=== PATIENT | female | born 1935 | race Caucasian/White ===

== ENCOUNTER 2018-02-15 22:10 | Inpatient (IN) | payer OTHER ==
[~2018-02-15] VITALS: Ht 167.6 cm; Wt 58.1 kg
[2018-02-15] MEDS ORDERED: LEVOTHYROXINE100 MC1 PO (22:49)
[2018-02-15] MEDS ORDERED: CITALOPRAM HBR20 MG PO (22:50)
[2018-02-15] MEDS ORDERED: EXELON1 EAC1 TOP (22:51)
[2018-02-15] MEDS ORDERED: MELATONIN3 M4 PO (22:52)
[2018-02-15] MEDS ORDERED: BISACODYL10 M1 RC (22:53)
[2018-02-15] MEDS ORDERED: MILK OF MA400 MG/52 PO (22:53)
[2018-02-15] MEDS ORDERED: FLEET ENEMA133 ML RC (22:53)
[2018-02-15] MEDS ORDERED: ACETAMINOPHEN325 M2 PO (22:54)
[2018-02-15] MEDS ORDERED: ACEPHEN650 M1 PR (22:55)
--- NOTE | 2018-02-15 22:55 | ED MVC/FALL/TRAUMA COMPLAINT ---
History of Present Illness General Chief Complaint: Fall Stated Complaint: FALL Source: patient, old records, EMS, [facility] Exam Limitations: no limitations Vital Signs & Intake/Output Vital Signs & Intake/Output Vital Signs Date Time Temp Pulse Resp B/P B/P Pulse O2 O2 Flow FiO2 Mean Ox Delivery Rate 02/15 2213 98.7 61 18 180/81 95 Room Air ED Intake and Output 02/16 0000 02/15 1200 Intake Total 0 Output Total Balance 0 Intake, Oral 0 Patient 130 lb Weight Weight Estimated Measurement Method Allergies Coded Allergies: donepezil (PER 02/15/18) Reconcile Medications Acetaminophen 325 MG TABLET 2 TAB PO Q4H PRN PAIN/TEMP>100 (Reported) Acetaminophen (Acephen) 650 MG SUPP.RECT [address] Q4H PRN PAIN/TEMP>100 ( Reported) Bisacodyl 10 MG SUPP.RECT 1 SUP RC PRN CONSTIPATION (Reported) Citalopram Hydrobromide (Citalopram HBr) 20 MG TABLET 1 TAB PO DAILY MENTAL HEALTH (Reported) Levothyroxine Sodium 100 MCG TABLET 1 TAB PO DAILY THYROID (Reported) Magnesium Hydroxide (Milk Of Magnesia) 400 MG/5 ML ORAL.SUSP 30 ML PO DAILY PRN CONSTIPATION (Reported) Melatonin 3 MG TABLET 1 TAB PO QHS SUPPLEMENT (Reported) Na Phos,M-B/Na Phos,Di-Ba (Fleet Enema) 19 GRAM-7 GRAM/118 ML ENEMA 1 E RC DAILY PRN CONSTIPATION (Reported) Rivastigmine (Exelon) 9.5 MG/Patch PAT 1 PAT TOP DAILY ALZHEIMERS (Reported) Triage Note: SEE NURSES NOTES Triage Nurses Notes Reviewed? yes Onset: Abrupt Duration: hour(s): (1), constant, continues in ED Timing: single episode today Severity: moderate, severe Injuries/Fall Location: lower extremity Method of Injury: fall Loss of Consciousness: no loss of consciousness No Modifying Factors: none Modifying Factors: Worsens With: movement, palpation. LMP (ages 10-50): post menopausal : No Patient currently breastfeeds: No HPI: 82-year-old female history of dementia hypothyroidism and osteoporosis osteoarthritis anxiety depression brought in by an officer evaluation after a possible fall. Patient was found on the ground at the long-term just prior to arrival. It is unclear how she got there. She is complaining of pain to her right hip. She does not remember the fall. She denies chest pain shortness of breath headache or neck pain. No back abdominal pain. She is not on blood thinners. According to EMS she is at her baseline as far as her mental status. (Bartolo Pichardo) Past History Travel History Traveled to [place] past 21 day No Medical History Any Pertinent Medical History? see below for history Endocrine: HYPOTHYROID Surgical History Surgical History: non-contributory Psychosocial History What is your primary language Hebrew Tobacco Use: Cognitive Impairment ETOH Use: 6 Illicit Drug Use: UTD Family History Hx Contributory? No (Bartolo Pichardo) Review of Systems Review of Systems Constitutional: Reports: no symptoms. Eyes: Reports: no symptoms. Ears, Nose, Throat, Mouth: Reports: no symptoms. Respiratory: Reports: no symptoms. Cardiovascular: Reports: no symptoms. Gastrointestinal/Abdominal: Reports: no symptoms. Genitourinary: Reports: no symptoms. Musculoskeletal: Reports: joint pain, joint swelling, muscle pain, muscle stiffness. Skin: Reports: no symptoms. Neurological/Psychological: Reports: no symptoms. All Other Systems: Reviewed and Negative (Bartolo Pichardo) Physical Exam Physical Exam General Appearance: well developed/nourished, no apparent distress, alert, awake Head: atraumatic, normal appearance Eyes: Bilateral: normal appearance, PERRL, EOMI. Ears, Nose, Throat, Mouth: hearing grossly normal, moist mucous membrane, Tympanic normal Neck: c COLLAR IS IN PLACE NO MIDLINE TENDERNESS NO GROSS DEFORMITY Respiratory: normal breath sounds, chest non-tender, no respiratory distress, lungs clear Cardiovascular: regular rate/rhythm, normal peripheral pulses Peripheral Pulses: 2+ radial (R), 2+ radial (L), 2+ tibialis posterior (R), 2+ tibialis posterior ( L), 2+ dorsalis pedis (R), 2+ dorsalis pedis (L) Gastrointestinal: soft, non-tender Back: normal inspection, normal range of motion, no vertebral tenderness Extremities: THERE IS DIFFUSE TENDERNESS TO PALPATION IN THE LATERAL ASPECT OF THE RIGHT HIP. tHE RIGHT LOWER EXTREMITY IS SHORTENED COMPARED TO THE LEFT. nO TENDERNESS OF THE KNEE ANKLE OR FOOT DISTAL PULSES INTACT. nO TENDERNESS OF THE BILATERAL UPPER EXTREMITIES Neurologic/Psych: no motor/sensory deficits, awake, alert, ORIENTED TO PERSON AND PLACE ONLY Skin: intact, normal color, warm/dry Core Measures ACS in differential dx? No CVA/TIA Diagnosis No Sepsis Present: No Sepsis Focused Exam Completed? No (Jarrett GARCIA,Bartolo) Progress Differential Diagnosis: C/T/L spine injury, ext injury, ICH, pelvis injury, pnemothorax, spinal cord injury, FRACTURE, CONTUSION, SPRAIN Plan of Care: Orders Procedure Date/time Status Nothing by Mouth 02/16 B Active Saline Lock 02/17 16 Active Misc Message 02/17 16 Active ED Holding Orders 02/17 16 Active Admit to inpatient 02/17 16 Active Vital Signs 02/17 16 Active Code Status 02/16 001 Active XRY-HIP 2-3 VIEWS, RIGHT 02/16 000 Active Jacobson, Insertion/Removal/Asses 02/16 2356 Active CULTURE,URINE 02/16 2356 Active URINALYSIS 02/15 2213 Active TROPONIN LEVEL 02/15 2213 Complete PARTIAL THROMBOPLASTIN TIME 02/15 2213 Complete PROTHROMBIN TIME 02/15 2213 Complete COMPREHENSIVE METABOLIC PANEL 02/15 2213 Complete CREATINE PHOSPHOKINASE 02/15 2213 Complete CBC WITHOUT DIFFERENTIAL 02/15 2213 Complete EKG 02/15 2213 Active TYPE & SCREEN (NOT X-MATCH) 02/15 2213 Complete Current Medications Sig/Nela Start time Last Medication Dose Stop Time Status Admin Morphine Sulfate 2 MG ONCE ONE 02/16 003 UNVr 02/16 (MORPHINE SULFATE) 02/16 0031 0030 Laboratory Tests 02/15/18 2300: Anion Gap 9, Estimated GFR > 60, BUN/Creatinine Ratio 26.3 H, Glucose 115 H, Calcium 8.8, Total Bilirubin 0.2, AST 17, ALT 25, Alkaline Phosphatase 85, Creatine Kinase 22 L, Troponin I < 0.01, Total Protein 6.4, Albumin 3.4 L, Globulin 3.0, Albumin/Globulin Ratio 1.1, PT 11.8, INR 1.08, APTT 24 L, CBC w Diff NO MAN DIFF REQ, RBC 4.17 L, MCV 95.3, MCH 31.6 H, MCHC 33.2, RDW 13.8, MPV 7.6, Gran % 79.6 H, Lymphocytes % 11.1 L, Monocytes % 6.2, Eosinophils % 2.6, Basophils % 0.5, Absolute Granulocytes 6.7 H, Absolute Lymphocytes 0.9 L, Absolute Monocytes 0.5, Absolute Eosinophils 0.2, Absolute Basophils 0 Microbiology 02/15 5114 URINE ROUT: Urine Culture - ORD Patient was brought in for evaluation after a fall. She is right hip pain. There is clinical evidence of a fracture. No other signs of trauma. CT scans of the head cervical spine chest and pelvis ordered. Labs EKG ordered. Patient medicated with IV Tylenol. Show an intertrochanteric fracture of the right hip. Distal pulses intact. No other trauma. Cervical collar removed. Labs so far are benign. EKG shows a left bundle branch block is unclear if this is new or old. A Jacobson was ordered spoke with Dr. Soliz who is aware orthopedics will consult. Patient will be admitted to medicine. Case discussed with Dr. Sanchez he agrees. Diagnostic Imaging: Viewed by Me: CT Scan. Discussed w/RAD: CT Scan. Radiology Impression: PATIENT: NICOLÁS GARCIA PRESENT AGE: 82 PATIENT ACCOUNT NO: [id number] : 33 LOCATION: [facility] ORDERING PHYSICIAN: Bartolo GARCIA SERVICE DATE: 02/15/18 EXAM TYPE: CAT - CT CERV SPINE WO IV CONTRAST; CT HEAD WO IV CONTRAST EXAMINATION: CT HEAD WITHOUT CONTRAST CT CERVICAL SPINE WITHOUT CONTRAST CLINICAL INFORMATION: Fall. Head strike. COMPARISON: None. TECHNIQUE: Imaging was performed from the skull base to vertex without intravenous administration of contrast. In addition, helical noncontrast CT imaging was acquired through the cervical spine and source images were reviewed along with axial reconstructions and sagittal and coronal MPRs. DLP: 969.62 mGy-cm FINDINGS: HEAD: No intracranial mass, hemorrhage, or midline shift is visualized. There is atrophy with prominence of the ventricles and the sulci and hypodensity of the periventricular white matter due to chronic small vessel ischemic disease. There is a lacunar infarct or prominent perivascular space in the left basal ganglia. There is vascular calcifications of the internal carotid arteries bilaterally. No extra-axial collections are identified. The paranasal sinuses and mastoid air cells are well aerated. CERVICAL SPINE: There is no evidence of acute cervical spine fracture. Vertebral bodies remain normal in height. Cervical vertebrae have normal alignment. There is multilevel degenerative spondylosis of the cervical spine with disc height narrowing and endplate spurs and facet joint arthrosis No pre- or paravertebral soft tissue abnormality is identified. Limited assessment of the lung apices is unremarkable. IMPRESSION: 1. No acute intracranial pathology. 2. No CT evidence of acute cervical spine fracture or traumatic subluxation DICTATED BY: Randy Gutierrez MD DATE/TIME DICTATED:02/15/182250 SYS DIR :DAVE DATE/TIME TRANSCRIBED:02/15/182250 CONFIDENTIAL, DO NOT COPY WITHOUT APPROPRIATE AUTHORIZATION. <Electronically signed in Other Vendor System> SIGNED BY: Randy Gutierrez MD 02/15/18 1146, PATIENT: NICOLÁS GARCIA PRESENT AGE: 82 PATIENT ACCOUNT NO: [id number] : LOCATION: [facility] ORDERING PHYSICIAN: Bartolo GARCIA SERVICE DATE: EXAM TYPE: CAT - CT ABD & PELVIS W/O IV CONTRAS; CT CHEST WO IV CONTRAST EXAMINATION: CT CHEST, ABDOMEN AND PELVIS WITH CONTRAST CLINICAL INFORMATION: Fall. COMPARISON: None. TECHNIQUE: Axial images obtained through the chest abdomen pelvis. Coronal and sagittal reformatted images performed at CT scanner. No oral or intravenous contrast was given. DLP: 353.34 mGy-cm. FINDINGS: CT CHEST: Lungs: The lungs are clear with no evidence of inflammation or nodules. Mediastinum: The mediastinum is normal. Pleura: There is no pleural effusion. No pleural mass or thickening. Axilla: No lymphadenopathy. CT ABDOMEN AND PELVIS: LIVER, GALLBLADDER, AND BILIARY TREE: The liver is normal in size, shape, and attenuation. No focal hepatic lesion or biliary ductal dilatation is present. The gallbladder is unremarkable with no evidence of radiopaque gallstones, gallbladder wall thickening, or obvious pericholecystic inflammatory changes. PANCREAS: No acute change of the pancreas. No mass. No pancreatic duct dilatation. SPLEEN: Spleen normal in size and contour. No focal lesion. ADRENAL GLANDS: Adrenal glands are normal in size. No focal mass. KIDNEYS AND URETERS: The kidneys are normal in size, shape, and attenuation. No hydronephrosis, hydroureter, or calculi seen. No perinephric stranding. BLADDER: Unremarkable. GASTROINTESTINAL TRACT: No acute change of the bowel. No bowel obstruction. No bowel wall thickening or edema. There are a few diverticula but no diverticulitis. Moderate volume of scattered stool in the colon. The appendix is normal. The small bowel loops are unremarkable. There is a small hiatal hernia. MESENTERY: No focal inflammation. No free fluid. No free air. ABDOMINAL WALL: No significant hernia is appreciated. LYMPH NODES: Normal. VASCULAR: There is atherosclerotic vascular wall calcifications of aorta and iliac arteries without aneurysm. PELVIC VISCERA: Unremarkable. OSSEOUS STRUCTURES: There is a comminuted intratrochanteric fracture of the right hip. Fractures of the displaced. Femoral head remains seated in the acetabulum. There is compression of the L3 vertebrae with about 40% loss of height of the vertebral body. This is age indeterminate. A fracture line is not seen. There is no paraspinal soft tissue hematoma. There is a anterior grade 1 listhesis of L4 on L5 due to the facet joint arthrosis at the lower lumbar spine. There is multilevel degenerative spondylosis of the spine. IMPRESSION: 1. Intratrochanteric fracture of the right hip. 2. Compression deformity of L3 vertebrae age-indeterminate. 3. No acute abnormality of the chest, abdomen or pelvis. DICTATED BY: Randy Gutierrez MD DATE/TIME DICTATED:02/15/182254 SYS DIR:DAVE DATE/TIME TRANSCRIBED:02/15/182254 CONFIDENTIAL, DO NOT COPY WITHOUT APPROPRIATE AUTHORIZATION. <Electronically signed in Other Vendor System> Initial ED EKG: normal sinus rhythm, LBBB (Bartolo Pichardo) Departure Departure Disposition: STILL A PATIENT Condition: Stable Clinical Impression Primary Impression: Intertrochanteric fracture of right hip Qualifiers: Encounter type: initial encounter Fracture type: closed Fracture alignment: nondisplaced Qualified Code: S72.144A - Nondisplaced intertrochanteric fracture of right femur, initial encounter for closed fracture Referrals: Malvin Izquierdo MD Departure Forms: Customer Survey General Discharge Information Admission Note Spoke With: Dane Jacobsen MD Documentation of Exam: Documentation of any treatments & extenuating circumstances including Concerns Regarding Discharge (functional status, medication knowledge or non-compliance, living conditions, etc.) that warrant an admission rather than observation: [ Serial labs, IV pain meds, orthopedic consult, physical therapy, case management , IV fluids] (Bartolo Pichardo) PA/SUPERINTENDENT CEMETERY Co-Sign Statement Statement: ED Attending supervision documentation- [x] I saw and evaluated the patient. I have also reviewed all the pertinent lab results and diagnostic results. I agree with the findings and the plan of care as documented in the PA's/SUPERINTENDENT CEMETERY's documentation. 02/15/18, 22:10... pt with external rotation of right leg, 2+ distal pulse, xrays /labs pending... hip fx likely [] I have reviewed the ED Record and agree with the PA's/SUPERINTENDENT CEMETERY's documentation. [] Additions or exceptions (if any) to the PAs/SUPERINTENDENT CEMETERY's note and plan are summarized below: [] (Daniel CAMPBELL,Morris Richmond)
[2018-02-15 23:19] LABS: ABSOLUTE BASOPHIL COUNT 0 /CUMM (0.0-0.2); ABSOLUTE EOSINOPHIL COUNT 0.2 /CUMM (0.0-0.7); ABSOLUTE GRANULOCYTE CT 6.7 /CUMM (1.4-6.5); ABSOLUTE LYMPH COUNT 0.9 /CUMM (1.2-3.4); ABSOLUTE MONOCYTE COUNT 0.5 /CUMM (0.10-0.60); BASOPHIL % 0.5 % (0.0-2.0); EOSINOPHIL % 2.6 % (0-5); GRANULOCYTE % 79.6 % (42.2-75.2); HEMATOCRIT 39.8 % (37-47); MEAN CORPUSCULAR HGB 31.6 PG (27.0-31.0); MEAN CORPUSCULAR HGB CONC 33.2 G/DL (33.0-37.0); MEAN CORPUSCULAR VOLUME 95.3 FL (81.0-99.0); MEAN PLATELET VOLUME 7.6 FL (7.4-10.4); PLATELET COUNT 218 /CUMM (130-400); RBC DISTRIBUTION WIDTH 13.8 % (11.5-14.5); RED BLOOD CELL CT 4.17 /CUMM (4.20-5.40); WHITE BLOOD CELL COUNT 8.4 /CUMM (4.8-10.8)
[2018-02-15 23:39] LABS: PT 11.8 SEC (9.4-12.5); PTT 24 SEC (25-37)
--- NOTE | 2018-02-15 23:43 | CT SCAN REPORT ---
EXAMINATION: CT CHEST, ABDOMEN AND PELVIS WITH CONTRAST CLINICAL INFORMATION: Fall. COMPARISON: None. TECHNIQUE: Axial images obtained through the chest abdomen pelvis. Coronal and sagittal reformatted images performed at CT scanner. No oral or intravenous contrast was given. DLP: 353.34 mGy-cm. FINDINGS: CT CHEST: Lungs: The lungs are clear with no evidence of inflammation or nodules. Mediastinum: The mediastinum is normal. Pleura: There is no pleural effusion. No pleural mass or thickening. Axilla: No lymphadenopathy. CT ABDOMEN AND PELVIS: LIVER, GALLBLADDER, AND BILIARY TREE: The liver is normal in size, shape, and attenuation. No focal hepatic lesion or biliary ductal dilatation is present. The gallbladder is unremarkable with no evidence of radiopaque gallstones, gallbladder wall thickening, or obvious pericholecystic inflammatory changes. PANCREAS: No acute change of the pancreas. No mass. No pancreatic duct dilatation. SPLEEN: Spleen normal in size and contour. No focal lesion. ADRENAL GLANDS: Adrenal glands are normal in size. No focal mass. KIDNEYS AND URETERS: The kidneys are normal in size, shape, and attenuation. No hydronephrosis, hydroureter, or calculi seen. No perinephric stranding. BLADDER: Unremarkable. GASTROINTESTINAL TRACT: No acute change of the bowel. No bowel obstruction. No bowel wall thickening or edema. There are a few diverticula but no diverticulitis. Moderate volume of scattered stool in the colon. The appendix is normal. The small bowel loops are unremarkable. There is a small hiatal hernia. MESENTERY: No focal inflammation. No free fluid. No free air. ABDOMINAL WALL: No significant hernia is appreciated. LYMPH NODES: Normal. VASCULAR: There is atherosclerotic vascular wall calcifications of aorta and iliac arteries without aneurysm. PELVIC VISCERA: Unremarkable. OSSEOUS STRUCTURES: There is a comminuted intratrochanteric fracture of the right hip. Fractures of the displaced. Femoral head remains seated in the acetabulum. There is compression of the L3 vertebrae with about 40% loss of height of the vertebral body. This is age indeterminate. A fracture line is not seen. There is no paraspinal soft tissue hematoma. There is a anterior grade 1 listhesis of L4 on L5 due to the facet joint arthrosis at the lower lumbar spine. There is multilevel degenerative spondylosis of the spine. IMPRESSION: 1. Intratrochanteric fracture of the right hip. 2. Compression deformity of L3 vertebrae age-indeterminate. 3. No acute abnormality of the chest, abdomen or pelvis.
--- NOTE | 2018-02-15 23:43 | CT SCAN REPORT ---
EXAMINATION: CT HEAD WITHOUT CONTRAST CT CERVICAL SPINE WITHOUT CONTRAST CLINICAL INFORMATION: Fall. Head strike. COMPARISON: None. TECHNIQUE: Imaging was performed from the skull base to vertex without intravenous administration of contrast. In addition, helical noncontrast CT imaging was acquired through the cervical spine and source images were reviewed along with axial reconstructions and sagittal and coronal MPRs. DLP: 969.62 mGy-cm FINDINGS: HEAD: No intracranial mass, hemorrhage, or midline shift is visualized. There is atrophy with prominence of the ventricles and the sulci and hypodensity of the periventricular white matter due to chronic small vessel ischemic disease. There is a lacunar infarct or prominent perivascular space in the left basal ganglia. There is vascular calcifications of the internal carotid arteries bilaterally. No extra-axial collections are identified. The paranasal sinuses and mastoid air cells are well aerated. CERVICAL SPINE: There is no evidence of acute cervical spine fracture. Vertebral bodies remain normal in height. Cervical vertebrae have normal alignment. There is multilevel degenerative spondylosis of the cervical spine with disc height narrowing and endplate spurs and facet joint arthrosis No pre- or paravertebral soft tissue abnormality is identified. Limited assessment of the lung apices is unremarkable. IMPRESSION: 1. No acute intracranial pathology. 2. No CT evidence of acute cervical spine fracture or traumatic subluxation
--- NOTE | 2018-02-16 01:21 | RADIOLOGY REPORT ---
EXAMINATION: XR HIP, RIGHT CLINICAL INFORMATION: Right hip fracture seen on CT COMPARISON: CT 02/15/2018 TECHNIQUE: Two views of the right hip. FINDINGS: Alignment across the hip is anatomic. There is a redemonstrated intertrochanteric femur fracture, including slight displacement of the lesser trochanteric fragment. Appearance is unchanged compared to vp respiratory image from recent CT. Included portions of the pelvis appear intact. IMPRESSION: Redemonstrated intertrochanteric fracture of the right femur.
--- NOTE | 2018-02-16 01:28 | History & Physical ---
Garcia CAMPBELL,Gary 02/16/18 0127: General Information and HPI MD Statement: I have seen and personally examined NICOLÁS GARCIA and documented this H&P. The patient is a 82 year old F who presented with a patient stated chief complaint of [HIP FRACTURE]. Source of Information: family, old records Exam Limitations: unable to give history History of Present Illness: Patient is a 82-year-old female with past medical history history of Alzheimer's dementia , hypothyroidism secondary to thyroid surgery, anxiety, osteoporosis, presented with chief complaints of fall followed by right hip pain. Most of the history is taken from senior care at [facility] and daughter-in- law, Mrs. Ribeiro. According to the senior care she had unwitnessed fall. She was complaining of pain in her right hip and leg. That's why they sent her to the [facility] for further evaluation and management. They were denying that patient was complaining of any dizziness, blurry vision, headache, low pressure. Past History Travel History Traveled to [place] past 21 day No Medical History Neurological: Alzheimer's disease, dementia Musculoskeletal: osteoarthritis Psychiatric: anxiety Endocrine: hypothyroidism Surgical History Surgical History: non-contributory Past Family/Social History Psychosocial History ETOH Use: 6 Illicit Drug Use: UTD Review of Systems Review of Systems Constitutional: Reports: no symptoms. Comments Cannot comment as patient is demented Exam & Diagnostic Data Last 24 Hrs of Vital Signs/I&O Vital Signs Date Time Temp Pulse Resp B/P B/P Pulse O2 O2 Flow FiO2 Mean Ox Delivery Rate 02/16 0253 97.8 56 20 158/82 98 Room Air 02/16 0225 97.3 57 16 168/72 97 02/16 0031 97.8 60 16 163/75 97 Room Air 02/15 2213 98.7 61 18 180/81 95 Room Air Intake & Output 02/16 0800 02/16 0000 02/15 1600 Intake Total 100 0 Output Total 300 Balance -200 0 Intake, IV 100 Intake, Oral 0 Output, Urine 300 Patient 55.452 kg 58.967 kg Weight Weight Bed scale Estimated Measurement Method Physical Exam General Appearance Alert, Cooperative, No Acute Distress Skin pale, multiple varicose vein and telangiectases HEENT Atraumatic, PERRLA, EOMI Neck Supple, No JVD Cardiovascular Normal S1, Normal S2 Lungs Clear to Auscultation, Normal Air Movement Abdomen Soft, No Tenderness Neurological Normal Speech Extremities No Clubbing, No Cyanosis, No Edema, Normal Pulses Last 24 Hrs of Labs/Slick: Laboratory Tests 02/16/18 0015: Urine Color YEL, Urine Clarity HAZY H, Urine pH 8.5 H, Ur Specific [place] 1.010, Urine Protein TRACE H, Urine Ketones NEG, Urine Nitrite POS H, Urine Bilirubin NEG, Urine Urobilinogen 0.2, Ur Leukocyte Esterase SMALL H, Ur Microscopic SEDIMENT EXAMINED, Urine RBC RARE, Urine WBC 1-3 H, Urine Bacteria MANY H, Urine Hemoglobin TRACE-INTACT, Urine Glucose NEG 02/15/18 2300: Anion Gap 9, Estimated GFR > 60, BUN/Creatinine Ratio 26.3 H, Glucose 115 H, Calcium 8.8, Total Bilirubin 0.2, AST 17, ALT 25, Alkaline Phosphatase 85, Creatine Kinase 22 L, Troponin I < 0.01, Total Protein 6.4, Albumin 3.4 L, Globulin 3.0, Albumin/Globulin Ratio 1.1, PT 11.8, INR 1.08, APTT 24 L, CBC w Diff NO MAN DIFF REQ, RBC 4.17 L, MCV 95.3, MCH 31.6 H, MCHC 33.2, RDW 13.8, MPV 7.6, Gran % 79.6 H, Lymphocytes % 11.1 L, Monocytes % 6.2, Eosinophils % 2.6, Basophils % 0.5, Absolute Granulocytes 6.7 H, Absolute Lymphocytes 0.9 L, Absolute Monocytes 0.5, Absolute Eosinophils 0.2, Absolute Basophils 0 Microbiology 02/15 2356 URINE ROUT: Urine Culture - ORD Assessment/Plan Assessment: Patient is a 82-year-old female with past medical history history of Alzheimer's dementia , hypothyroidism secondary to thyroid surgery, anxiety, osteoporosis, presented with chief complaints of fall followed by right hip pain. Vital signs-temperature 98.7, pulse 61, respiratory 18, blood pressure 180/81, SPO2 95% on room air. Blood workup did show-WBC 8.4, RBC 4.17, hemoglobin 13.2, hematocrit 39.8, MCV 95.6, MCH 30 1.6, platelet count 218, granulocyte 79.6, lymphocyte 11.1, serum sodium 141, potassium 4.2, chloride 104, carbonate 28, anion gap 9, BUN 21, creatinine 0.8, glucose 115, calcium 8.8, total bilirubin 0.2, AST 17, ALT 25, alkaline phosphatase 80, creatinine kinase 22, troponin I less than 0.01, total protein 6.4, albumin 3.4, PT 11 point 8, INR 1.08, PTT 24, urinalysis showed pH 8.5, protein trace, nitrate positive, leukocyte esterase small, WBC 1 -3. CT scan of the abdomen, pelvis, cervical spine, chest, head - 1. Intratrochanteric fracture of the right hip. 2. Compression deformity of L3 vertebrae age-indeterminate. 3. No acute abnormality of the chest, abdomen or pelvis. 4. No acute intracranial pathology. 5. No CT evidence of acute cervical spine fracture or traumatic subluxation Assessment and plan Intratrochanteric fracture of the right hip, secondary to unwitnessed fall- * We'll keep patient nothing by mouth * We will place Cardiologic consult as the patient EKG were showing wide QRS complex, possibly interventricular conduction defect and examination were showing murmur. * IV fluid normal saline 50 mL per hour. * Strict intake output charting. * Watch for the breathing problem. * We will follow the consultation from Dr. Soliz, for possible hip repaire. * Patient medication according to the pain scale Chronic medical condition-hypothyroidism, Alzheimer's disease- * We'll continue injection levothyroxin 50 micrograms daily, Rivatigmine patch CODE STATUS -DNR/DNI. According to the documentation, patient wanted full code. She was not oriented to time, place and person. We discussed with the her [id number], who is the power of compliance attorney and she told that she doesn't want her to be get resuscitated and want DNR/DNI. Diet-nothing by mouth DVT prophylaxis-ALP S/heparin; Coumadin to heparin as she may possibly undergo surgery tomorrow. As Ranked By This Provider Problem List: 1. Intertrochanteric fracture of right hip Qualifiers Encounter type: initial encounter Fracture type: closed Fracture alignment: nondisplaced Qualified Code: S72.144A - Nondisplaced intertrochanteric fracture of right femur, initial encounter for closed fracture Core Measures/Misc (04/15) Acute Coronary Syndrome ACS Diagnosis: No Congestive Heart Failure Congestive Heart Failure Diagnosis No Cerebrovascular Accident CVA/TIA Diagnosis: No VTE (View Protocol) VTE Risk Factors Age>40 No Mechanical VTE Prophylaxis d/t N/A MechProphylax Ordered No VTE Pharm Prophylaxis d/t NA PharmProphylax ordered Sepsis (View protocol) Sepsis Present: No If YES complete Sepsis Event Note If YES complete Sepsis Event Note Dane Jacobsen MD 02/16/18 0522: General Information and HPI MD Statement: I have seen and personally examined NICOLÁS GARCIA Albina and documented this H&P. The patient is a 82 year old F who presented with a patient stated chief complaint of [hip pain]. Source of Information: old records, [facility] Exam Limitations: unable to give history Allergies/Medications Allergies: Coded Allergies: donepezil (PER 02/15/18) Home Med list Acetaminophen 325 MG TABLET 2 TAB PO Q4H PRN PAIN/TEMP>100 (Reported) Acetaminophen (Acephen) 650 MG SUPP.RECT 1 SUPP RI Q4H PRN PAIN/TEMP>100 ( Reported) Bisacodyl 10 MG SUPP.RECT 1 SUP RC PRN CONSTIPATION (Reported) Citalopram Hydrobromide (Citalopram HBr) 20 MG TABLET 1 TAB PO DAILY MENTAL HEALTH (Reported) Levothyroxine Sodium 100 MCG TABLET 1 TAB PO DAILY THYROID (Reported) Magnesium Hydroxide (Milk Of Magnesia) 400 MG/5 ML ORAL.SUSP 30 ML PO DAILY PRN CONSTIPATION (Reported) Melatonin 3 MG TABLET 1 TAB PO QHS SUPPLEMENT (Reported) Na Phos,M-B/Na Phos,Di-Ba (Fleet Enema) 19 GRAM-7 GRAM/118 ML ENEMA 1 E RC DAILY PRN CONSTIPATION (Reported) Rivastigmine (Exelon) 9.5 MG/Patch PAT 1 PAT TOP DAILY ALZHEIMERS (Reported) Past History Medical History Neurological: Alzheimer's disease, dementia Musculoskeletal: osteoarthritis Psychiatric: anxiety Endocrine: hypothyroidism Past Family/Social History Psychosocial History ETOH Use: denies use Illicit Drug Use: denies illicit drug use Employment History Employment Retired Review of Systems Review of Systems Constitutional: Reports: see HPI. Exam & Diagnostic Data Last 24 Hrs of Vital Signs/I&O Vital Signs Date Time Temp Pulse Resp B/P B/P Pulse O2 O2 Flow FiO2 Mean Ox Delivery Rate 02/16 0253 97.8 56 20 158/82 98 Room Air 02/16 0225 97.3 57 16 168/72 97 02/16 0031 97.8 60 16 163/75 97 Room Air 02/15 2213 98.7 61 18 180/81 95 Room Air Intake & Output 02/16 0800 02/16 0000 02/15 1600 Intake Total 100 0 Output Total 700 Balance -600 0 Intake, IV 100 Intake, Oral 0 Output, Urine 700 Patient 122 lb 130 lb Weight Weight Bed scale Estimated Measurement Method Physical Exam General Appearance Alert, Cooperative, No Acute Distress Skin No Rashes HEENT Atraumatic, PERRLA, EOMI Neck Supple, No JVD Lymphatic Axillary nl, Cervical nl Cardiovascular Regular Rate, Normal S1, Normal S2 Lungs Clear to Auscultation, Normal Air Movement Abdomen Normal Bowel Sounds, Soft, No Tenderness Extremities No Clubbing Last 24 Hrs of Labs/Slick: Laboratory Tests 02/16/18 0015: Urine Color YEL, Urine Clarity HAZY H, Urine pH 8.5 H, Ur Specific [place] 1.010, Urine Protein TRACE H, Urine Ketones NEG, Urine Nitrite POS H, Urine Bilirubin NEG, Urine Urobilinogen 0.2, Ur Leukocyte Esterase SMALL H, Ur Microscopic SEDIMENT EXAMINED, Urine RBC RARE, Urine WBC 1-3 H, Urine Bacteria MANY H, Urine Hemoglobin TRACE-INTACT, Urine Glucose NEG 02/15/18 2300: Anion Gap 9, Estimated GFR > 60, BUN/Creatinine Ratio 26.3 H, Glucose 115 H, Calcium 8.8, Total Bilirubin 0.2, AST 17, ALT 25, Alkaline Phosphatase 85, Creatine Kinase 22 L, Troponin I < 0.01, Total Protein 6.4, Albumin 3.4 L, Globulin 3.0, Albumin/Globulin Ratio 1.1, PT 11.8, INR 1.08, APTT 24 L, CBC w Diff NO MAN DIFF REQ, RBC 4.17 L, MCV 95.3, MCH 31.6 H, MCHC 33.2, RDW 13.8, MPV 7.6, Gran % 79.6 H, Lymphocytes % 11.1 L, Monocytes % 6.2, Eosinophils % 2.6, Basophils % 0.5, Absolute Granulocytes 6.7 H, Absolute Lymphocytes 0.9 L, Absolute Monocytes 0.5, Absolute Eosinophils 0.2, Absolute Basophils 0 Microbiology 02/15 4716 URINE ROUT: Urine Culture - COLB Core Measures/Misc (04/15) Sepsis (View protocol) If YES complete Sepsis Event Note If YES complete Sepsis Event Note Attending MD Review Statement Attending Statement Attending MD Statement: examined this patient, discuss w/resident/PA/STOREROOM ATTENDANT, agreed w/resident/PA/STOREROOM ATTENDANT, amended to note Attending Assessment/Plan: This patient is an 82-year-old white female with a significant past medical history for Alzheimer's dementia , hypothyroidism secondary to thyroid surgery, anxiety, osteoporosis, presented with chief complaints of fall followed by right hip pain. According to the senior care she had an unwitnessed fall. She was complaining of pain in her right hip and leg. She was sent to [place] for further evaluation and management and was found to have a intra-trochanteric fracture of the right hip. Dr. Soliz was contacted for possible repair. Cardiology consult for widening QRS complex and possible intra-ventricular conduction defect. DNRDNI per senior care. Alfreda CAMPBELL,Alfredo Dave 02/16/18 1020: Core Measures/Misc (04/15) Sepsis (View protocol) If YES complete Sepsis Event Note If YES complete Sepsis Event Note
[2018-02-16 02:53] VITALS: BP 158/82
[2018-02-16 05:38] VITALS: BP 152/80
[2018-02-16 08:40] LABS: ABSOLUTE BASOPHIL COUNT 0 /CUMM (0.0-0.2); ABSOLUTE EOSINOPHIL COUNT 0 /CUMM (0.0-0.7); ABSOLUTE GRANULOCYTE CT 8.1 /CUMM (1.4-6.5); ABSOLUTE LYMPH COUNT 0.6 /CUMM (1.2-3.4); ABSOLUTE MONOCYTE COUNT 0.4 /CUMM (0.10-0.60); BASOPHIL % 0.1 % (0.0-2.0); EOSINOPHIL % 0.1 % (0-5); GRANULOCYTE % 88.7 % (42.2-75.2); HEMATOCRIT 35.2 % (37-47); MEAN CORPUSCULAR HGB 32.5 PG (27.0-31.0); MEAN CORPUSCULAR HGB CONC 34.1 G/DL (33.0-37.0); MEAN CORPUSCULAR VOLUME 95.3 FL (81.0-99.0); MEAN PLATELET VOLUME 7.8 FL (7.4-10.4); PLATELET COUNT 197 /CUMM (130-400); RBC DISTRIBUTION WIDTH 13.8 % (11.5-14.5); RED BLOOD CELL CT 3.69 /CUMM (4.20-5.40); WHITE BLOOD CELL COUNT 9.1 /CUMM (4.8-10.8)
--- NOTE | 2018-02-16 09:13 | Cons- Orthopedic ---
General Information and HPI Consulting Request Date of Consult: 02/16/18 Requested By: Dane Jacobsen MD Reason for Consult: Right intertrochanteric hip fracture Source of Information: family History of Present Illness: Patient was at [facility] had an unwitnessed fall and sustained a trauma to her right hip. She was unable to ambulate brought to [facility] emergency room with a right intertrochanteric hip fracture. I was called as a consult from the emergency room. Allergies/Medications Allergies: Coded Allergies: donepezil (PER 02/15/18) Home Med List: Acetaminophen 325 MG TABLET 2 TAB PO Q4H PRN PAIN/TEMP>100 (Reported) Acetaminophen (Acephen) 650 MG SUPP.RECT 1 SUPP [place] Q4H PRN PAIN/TEMP>100 ( Reported) Bisacodyl 10 MG SUPP.RECT 1 SUP RC PRN CONSTIPATION (Reported) Citalopram Hydrobromide (Citalopram HBr) 20 MG TABLET 1 TAB PO DAILY MENTAL HEALTH (Reported) Levothyroxine Sodium 100 MCG TABLET 1 TAB PO DAILY THYROID (Reported) Magnesium Hydroxide (Milk Of Magnesia) 400 MG/5 ML ORAL.SUSP 30 ML PO DAILY PRN CONSTIPATION (Reported) Melatonin 3 MG TABLET 1 TAB PO QHS SUPPLEMENT (Reported) Na Phos,M-B/Na Phos,Di-Ba (Fleet Enema) 19 GRAM-7 GRAM/118 ML ENEMA 1 E RC DAILY PRN CONSTIPATION (Reported) Rivastigmine (Exelon) 9.5 MG/Patch PAT 1 PAT TOP DAILY ALZHEIMERS (Reported) Past History Medical History Neurological: Alzheimer's disease, dementia EENT: NONE Cardiovascular: NONE Respiratory: NONE Gastrointestinal: NONE Hepatic: NONE Renal: NONE Musculoskeletal: osteoarthritis Psychiatric: anxiety Endocrine: hypothyroidism Blood Disorders: NONE Cancer(s): NONE 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 Surgical History Pertinent Surgical History: non-contributory Psychosocial History Smoking Status: Unknown If Ever Smoked ETOH Use: denies use Illicit Drug Use: denies illicit drug use Employment History Employment: Retired Exam & Diagnostic Data Vital Signs and I&O Vital Signs Date Time Temp Pulse Resp B/P B/P Pulse O2 O2 Flow FiO2 Mean Ox Delivery Rate 02/16 0538 97.4 60 20 152/80 97 Room Air 02/16 0253 97.8 56 20 158/82 98 Room Air 02/16 0225 97.3 57 16 168/72 97 02/16 0031 97.8 60 16 163/75 97 Room Air 02/15 2213 98.7 61 18 180/81 95 Room Air Intake & Output 02/16 1600 02/16 0800 02/16 0000 02/15 1600 02/15 0800 02/15 0000 Intake Total 300 0 Output Total 700 Balance -400 0 Intake, IV 300 Intake, Oral 0 Output, Urine 700 Patient 122 lb 130 lb Weight Weight Bed scale Estimated Measurement Method Physical Exam: On physical examination the patient is confused and not really aware of her location and/or date. I did contact her [id number] Gema Gomez who is the power of deputy county attorney and I discussed what was needed in the way of surgical procedure she gave us a consent over the phone with the nurse present. She is alert she has pain in the right hip area she has no pain in the upper extremities no deformities of the upper extremities no cervical pain today. Regards to her lower extremity she's moving the ankle very nicely she has an externally rotated right femur. Left lower extremity there are no deformities noted. She has good sensation in the lower extremities her pulses are intact. X-rays show a three-part intertrochanteric hip fracture on the right side. Assessment/Plan Assessment/Plan Assessment is 82-year-old female unwitnessed fall sustained a closed right intertrochanteric hip fracture. The plan is at this point in time is an intramedullary rigoberto in the right femur we have a consent from her [id number] who is the power of deputy county attorney. We are awaiting medical and cardiology clearance today. We will keep her nothing by mouth. Consult Acknowledgment - Thank you for your consult request. Attending MD Review Statement Attending Statement Attending MD Statement: examined this patient
--- NOTE | 2018-02-16 10:42 | Cons- Cardiology ---
General Information and HPI Consulting Request Date of Consult: 02/16/18 Requested By: Dane Jacobsen MD Reason for Consult: Preoperative cardiovascular evaluation. Source of Information: patient, old records Exam Limitations: dementia History of Present Illness: Ms. Jeanine Lal is an 82-year-old female with a history of Alzheimer 's dementia, hypothyroidism secondary to thyroid resection, osteoporosis, and anxiety disorder who presented to the ED from her SNF ([facility]) following an unwitnessed fall during which she sustained an intertrochanteric fracture of her right femur for which orthopedic surgery has been recommended. Ms. Lal cannot give any reliable history as a result of her dementia. According to the record she has no known history of coronary, valvular, dysrhythmic/conduction disease, or cardiomyopathy. The record does not suggest any history of risk factors/risk equivalents for coronary artery disease, such as hypertension, dyslipidemia, diabetes mellitus, tobacco use, etc. Allergies/Medications Allergies: Coded Allergies: donepezil (PER 02/15/18) Home Med List: Acetaminophen 325 MG TABLET 2 TAB PO Q4H PRN PAIN/TEMP>100 (Reported) Acetaminophen (Acephen) 650 MG SUPP.RECT 1 SUPP DE Q4H PRN PAIN/TEMP>100 ( Reported) Bisacodyl 10 MG SUPP.RECT 1 SUP RC PRN CONSTIPATION (Reported) Citalopram Hydrobromide (Citalopram HBr) 20 MG TABLET 1 TAB PO DAILY MENTAL HEALTH (Reported) Levothyroxine Sodium 100 MCG TABLET 1 TAB PO DAILY THYROID (Reported) Magnesium Hydroxide (Milk Of Magnesia) 400 MG/5 ML ORAL.SUSP 30 ML PO DAILY PRN CONSTIPATION (Reported) Melatonin 3 MG TABLET 1 TAB PO QHS SUPPLEMENT (Reported) Na Phos,M-B/Na Phos,Di-Ba (Fleet Enema) 19 GRAM-7 GRAM/118 ML ENEMA 1 E RC DAILY PRN CONSTIPATION (Reported) Rivastigmine (Exelon) 9.5 MG/Patch PAT 1 PAT TOP DAILY ALZHEIMERS (Reported) Review of Systems Review of Systems: System review was attempted, but was unobtainable, secondary to the patient's advanced dementia. Past History Travel History Traveled to [place] past 21 day No Medical History Neurological: Alzheimer's disease, dementia EENT: NONE Cardiovascular: NONE Respiratory: NONE Gastrointestinal: NONE Hepatic: NONE Renal: NONE Musculoskeletal: osteoarthritis Psychiatric: anxiety Endocrine: hypothyroidism Blood Disorders: NONE Cancer(s): NONE EDUCATIONAL MANAGER/Reproductive: NONE Surgical History Surgical History: non-contributory Psychosocial History Smoking Status: Unknown If Ever Smoked ETOH Use: denies use Illicit Drug Use: denies illicit drug use Employment History Employment: Retired Exam & Diagnostic Data Vital Signs and I&O Vital Signs Date Time Temp Pulse Resp B/P B/P Pulse O2 O2 Flow FiO2 Mean Ox Delivery Rate 02/16 0538 97.4 60 20 152/80 97 Room Air 02/16 0253 97.8 56 20 158/82 98 Room Air 02/16 0225 97.3 57 16 168/72 97 02/16 0031 97.8 60 16 163/75 97 Room Air 02/15 2213 98.7 61 18 180/81 95 Room Air Intake & Output 02/16 1600 02/16 0800 02/16 0000 02/15 1600 02/15 0800 02/15 0000 Intake Total 300 0 Output Total 700 Balance -400 0 Intake, IV 300 Intake, Oral 0 Output, Urine 700 Patient 122 lb 130 lb Weight Weight Bed scale Estimated Measurement Method Physical Exam: Well-developed, well-nourished elderly female in no acute distress. Vital signs: See above. HEENT: Normocephalic, atraumatic, EOMI, slightly dry mucous membranes. Neck: No JVD, no bruits. Lungs: Clear to auscultation bilaterally. Heart: S1, S2 with grade 1-2/6 systolic murmur. No gallop or rub. Abdomen: Soft, nontender, positive bowel sounds. Extremities: No edema. Labs/Slick Results: Laboratory Tests 02/16 02/16 0635 0015 Chemistry Sodium (137 - 145 mmol/L) 141 Potassium (3.5 - 5.1 mmol/L) 4.1 Chloride (98 - 107 mmol/L) 105 Carbon Dioxide (22 - 30 mmol/L) 27 Anion Gap (5 - 16) 8 BUN (7 - 17 mg/dL) 17 Creatinine (0.5 - 1.0 mg/dL) 0.6 Estimated GFR (>60 ml/min) > 60 BUN/Creatinine Ratio (7 - 25 %) 28.3 H Hematology CBC w Diff NO MAN DIFF REQ WBC (4.8 - 10.8 /CUMM) 9.1 RBC (4.20 - 5.40 /CUMM) 3.69 L Hgb (12.0 - 16.0 G/DL) 12.0 Hct (37 - 47 %) 35.2 L MCV (81.0 - 99.0 FL) 95.3 MCH (27.0 - 31.0 PG) 32.5 H MCHC (33.0 - 37.0 G/DL) 34.1 RDW (11.5 - 14.5 %) 13.8 Plt Count (130 - 400 /CUMM) 197 MPV (7.4 - 10.4 FL) 7.8 Gran % (42.2 - 75.2 %) 88.7 H Lymphocytes % (20.5 - 51.1 %) 6.4 L Monocytes % (1.7 - 9.3 %) 4.7 Eosinophils % (0 - 5 %) 0.1 Basophils % (0.0 - 2.0 %) 0.1 Absolute Granulocytes (1.4 - 6.5 /CUMM) 8.1 H Absolute Lymphocytes (1.2 - 3.4 /CUMM) 0.6 L Absolute Monocytes (0.10 - 0.60 /CUMM) 0.4 Absolute Eosinophils (0.0 - 0.7 /CUMM) 0 Absolute Basophils (0.0 - 0.2 /CUMM) 0 Urines Urine Color (YEL,AMB,STR) YEL Urine Clarity (CLEAR) HAZY H Urine pH (5.0 - 8.0) 8.5 H Ur Specific Osteen (1.001 - 1.035) 1.010 Urine Protein (NEG,<30 MG/DL) TRACE H Urine Ketones (NEG) NEG Urine Nitrite (NEG) POS H Urine Bilirubin (NEG) NEG Urine Urobilinogen (0.1 - 1.0 EU/dl) 0.2 Ur Leukocyte Esterase (NEG) SMALL H Ur Microscopic SEDIMENT EXAMINED Urine RBC (0 - 5 /HPF) RARE Urine WBC (0 - 2 /HPF) 1-3 H Urine Bacteria (NEG/NONE) MANY H Urine Hemoglobin (NEG) TRACE-INTACT Urine Glucose (N MG/DL) NEG 02/15 2300 Chemistry Sodium (137 - 145 mmol/L) 141 Potassium (3.5 - 5.1 mmol/L) 4.2 Chloride (98 - 107 mmol/L) 104 Carbon Dioxide (22 - 30 mmol/L) 28 Anion Gap (5 - 16) 9 BUN (7 - 17 mg/dL) 21 H Creatinine (0.5 - 1.0 mg/dL) 0.8 Estimated GFR (>60 ml/min) > 60 BUN/Creatinine Ratio (7 - 25 %) 26.3 H Glucose (65 - 99 mg/dL) 115 H Calcium (8.4 - 10.2 mg/dL) 8.8 Total Bilirubin (0.2 - 1.3 mg/dL) 0.2 AST (14 - 36 U/L) 17 ALT (9 - 52 U/L) 25 Alkaline Phosphatase (<127 U/L) 85 Creatine Kinase (30 - 135 U/L) 22 L Troponin I (< 0.11 ng/ml) < 0.01 Total Protein (6.3 - 8.2 g/dL) 6.4 Albumin (3.5 - 5.0 g/dL) 3.4 L Globulin (1.9 - 4.2 gm/dL) 3.0 Albumin/Globulin Ratio (1.1 - 2.2 %) 1.1 Coagulation PT (9.4 - 12.5 SEC) 11.8 INR (0.90 - 1.19) 1.08 APTT (25 - 37 SEC) 24 L Hematology CBC w Diff NO MAN DIFF REQ WBC (4.8 - 10.8 /CUMM) 8.4 RBC (4.20 - 5.40 /CUMM) 4.17 L Hgb (12.0 - 16.0 G/DL) 13.2 Hct (37 - 47 %) 39.8 MCV (81.0 - 99.0 FL) 95.3 MCH (27.0 - 31.0 PG) 31.6 H MCHC (33.0 - 37.0 G/DL) 33.2 RDW (11.5 - 14.5 %) 13.8 Plt Count (130 - 400 /CUMM) 218 MPV (7.4 - 10.4 FL) 7.6 Gran % (42.2 - 75.2 %) 79.6 H Lymphocytes % (20.5 - 51.1 %) 11.1 L Monocytes % (1.7 - 9.3 %) 6.2 Eosinophils % (0 - 5 %) 2.6 Basophils % (0.0 - 2.0 %) 0.5 Absolute Granulocytes (1.4 - 6.5 /CUMM) 6.7 H Absolute Lymphocytes (1.2 - 3.4 /CUMM) 0.9 L Absolute Monocytes (0.10 - 0.60 /CUMM) 0.5 Absolute Eosinophils (0.0 - 0.7 /CUMM) 0.2 Absolute Basophils (0.0 - 0.2 /CUMM) 0 Diagnostic Data EKG Results 02/15/2018 Sinus rhythm, first-degree AV block, left bundle branch block. New left bundle branch block compared to remote previous tracing from 11/08/2001. Other Results Right hip x-ray 02/16/2018 1. Redemonstrated intertrochanteric fracture of the right femur. CT chest, abdomen, pelvis 02/15/2018 1. Intratrochanteric fracture of the right hip. 2. Compression deformity of L3 vertebrae age-indeterminate. 3. No acute abnormality of the chest, abdomen or pelvis. CT head/cervical spine 02/15/2018 1. No acute intracranial pathology. 2. No CT evidence of acute cervical spine fracture or traumatic subluxation Assessment/Plan Assessment/Plan [id number] w/ hx of Alzheimer's dementia, hypothyroidism 2/2 thyroid resection, osteoporosis, and anxiety disorder who presented to the ED from her SNF ( [facility]) following an unwitnessed fall during which she sustained an intertrochanteric fracture of her right femur for which orthopedic surgery has been recommended. Ms. Lal cannot give any reliable history as a result of her dementia, but her medical record does not suggest any history of cardiac disease or risk factors/ risk equivalents for coronary artery disease. She does have evidence of a left bundle branch block (LBBB) on her 12-lead electrocardiogram when compared to the last tracing we have on file here from 2001. LBBB occurs most often in patients with underlying cardiac disease and can be associated with progressive conduction system disease, however it can also be seen in asymptomatic individuals with structurally normal hearts. The presence of a LBBB in patients undergoing noncardiac surgery is not associated with an increase in postoperative cardiac complications, but is associated with a nonsignificant increase in perioperative mortality as a result of non-cardiovascular complications. The prevalence of LBBB appears to increase with age and most commonly results not from a single clinical entity, but rather from slowly progressive degenerative disease involving the conduction system. For asymptomatic individuals with an isolated LBBB and no other evidence of cardiac disease, no specific therapy is required. Based on the above, it would appear that the benefit of orthopedic surgery outweighs the potential risk in this patient and she is cleared from a cardiac standpoint for the proposed surgery. Recommendations: * Proceed with orthopedic surgery. * Consider telemetry monitoring postoperatively given the presence of LBBB on her 12-lead electrocardiogram. * Obtain an echocardiogram to assess her left ventricular systolic/diastolic function. * DVT prophylaxis. Consult Acknowledgment - Thank you for your consult request. * Obtain an echocardiogram to assess her left ventricular systolic/diastolic function. * DVT prophylaxis. Consult Acknowledgment - Thank you for your consult request.
--- NOTE | 2018-02-16 11:31 | PN- Att Addend ---
Attending Addendum Attending Brief Note Ms. Lal was seen and evaluated. H&P reviwed. Briefly, she is an 82-year-old lady with PMHx: Alzheimer's dementia, hypthyroidism secondary to thyroid surgery, anxiety, osteoporosis, a/w right hip s/p fall at her senior care. She was found to have intra-trochanteric fracture of the right hip. She has been evalauted by Ortho and awaiting Cards eval prior to surgery. --f/u Cards eval, RCRI risk eval --DNRDNI per senior care.
[2018-02-16 15:05] VITALS: BP 140/70
--- NOTE | 2018-02-16 16:30 | ECHOCARDIOGRAM REPORT ---
NICOLÁS GARCIA Age: 82 : 1935 Gender: F Exam Date: 02/16/2018 11:27 Exam Location: [facility] Ht (in): 66 Wt (lb): 130 BSA: 1.66 BP: 152 / 80 Ordering Physician: Anh Zelaya MD Referring Physician: Anh Zelaya MD Technologist: Harriett Monson [facility] Room Number: 228 Indications: Rhythm: Sinus Technical Quality: Fair FINDINGS Left Ventricle Normal global left ventricular size, wall thickness, systolic function with no obvious regional wall motion abnormalities. Normal left ventricular ejection fraction visually estimated at 65%. Mildly increased resting left ventricular outflow tract velocity (1.35 m/s). Abnormal relaxation filling pattern of the left ventricle. Right Ventricle Normal right ventricular size and function. Right Atrium Normal right atrial size. Left Atrium Mild left atrial dilatation. Mitral Valve Mildly calcified mitral valve annulus. Mitral valve mildly thickened. Trace mitral regurgitation. Aortic Valve Aortic valve not well visualized. Diffuse thickening of the aortic valve cusps with reduced excursion. Mild aortic stenosis. Mild aortic regurgitation. Tricuspid Valve Tricuspid valve not well visualized, grossly normal. Mild tricuspid regurgitation. Pulmonic Valve Pulmonic valve not well visualized. No pulmonic regurgitation. Pericardium No pericardial effusion. Great Vessels Normal size aortic root. Normal size inferior vena cava. CONCLUSIONS Normal global left ventricular size, wall thickness, systolic function with no obvious regional wall motion abnormalities. Normal left ventricular ejection fraction visually estimated at 65%. Mildly increased resting left ventricular outflow tract velocity (1.35 m/s). Abnormal relaxation filling pattern of the left ventricle. Normal right ventricular size and function. Normal right atrial size. Mild left atrial dilatation. Trace mitral regurgitation. Mild aortic stenosis. Mild aortic regurgitation. Mild tricuspid regurgitation. Alfredo Gant M.D. (Electronically Signed) Final Date: 16 February 2018 16:25 MEASUREMENTS (Male / Female) Normal Values 2D ECHO LV Diastolic Diameter PLAX 3.9 cm 4.2 - 5.9 / 3.9 - 5.3 cm LV Systolic Diameter PLAX 2.3 cm 2.1 - 4.0 cm LV Fractional Shortening PLAX 41.0 % 25 - 46 % LV Ejection Fraction 2D Teich 72.5 % IVS Diastolic Thickness 1.0 cm LVPW Diastolic Thickness 1.0 cm LV Relative Wall Thickness 0.5 LVOT Diameter 2.0 cm Aortic Root Diameter 2.7 cm LA Systolic Diameter LX 2.9 cm 3.0 - 4.0 / 2.7 - 3.8 cm LA Volume 54.0 cm 18 - 58 / 22 - 52 cm DOPPLER AV Peak Velocity 205.0 cm/s AV Peak Gradient 16.8 mmHg LVOT Peak Velocity 135.0 cm/s LVOT Peak Gradient 7.3 mmHg AV Area Cont Eq pk 2.1 cm Mitral E Point Velocity 64.8 cm/s Mitral A Point Velocity 110.0 cm/s Mitral E to A Ratio 0.6 MV Deceleration Time 299.0 ms TR Peak Velocity 267.0 cm/s TR Peak Gradient 28.5 mmHg PV Peak Velocity 124.0 cm/s PV Peak Gradient 6.2 mmHg
--- NOTE | 2018-02-16 17:16 | Operative Report ---
Operative/Inv Procedure Report Surgery Date: 02/16/18 Name of Procedure: Right femur intramedullary rodding Pre-Operative Diagnosis: Right intertrochanteric hip fracture Post-Operative Diagnosis: Right intertrochanteric hip fracture Estimated Blood Loss: 50ml to 100ml Surgeon/Bank Credit Card Collection Clerk: da Anesthesia: laryngeal mask airway Operative/Procedure Note Note: Patient is an 82-year-old female brought to the operating room she was given a general anesthetic while in her bed and she was also given a right hip block. She was then gently transferred to the fracture table and placed in longitudinal fracture traction. In anatomic alignment of the fracture was carried out by applying traction to the hip. And some internal rotation. Fluoroscopic pictures were taken to prove this. The right hip and leg were then prepped and draped in the usual sterile fashion. A 3 cm incision was carried out proximal to the greater trochanter the fascia was opened and a guidewire was placed down the femur. Proximal reaming was carried out to just below the lesser trochanter. A 10 x 1 25 nail was then placed down the femoral canal. Went ahead and then made 2 smaller incisions one for the lag screw placement and one for the distal screw placement. Guidewire was placed across the femoral neck into the head being about 5-7 mm short of the subchondral bone. This was verified on AP and lateral fluoroscopic pictures depth gauge measurement taken in 90 lag screw seem to be the most appropriate side. The reamer was then set and reaming commenced up into the femoral head neck. Lag screw was then placed. Lag screw was then locked from above. Went ahead and then drilled across and put a 30 mm 5.0 screw distally which was good bicortical contact. Thorough irrigation was carried out at the end of the procedure wounds were closed in a layered fashion jackie were used in the skin dry sterile dressings were applied and she was sent back to the recovery room in good condition with no problems.
[2018-02-16 18:25] VITALS: BP 128/62
--- NOTE | 2018-02-16 19:13 | PN- Orthopedic ---
Core Measures Venous Thromboembolism VTE Risk Factors Age>40 No Mechanical VTE Prophylaxis d/t N/A MechProphylax Ordered No VTE Pharm Prophylaxis d/t NA PharmProphylax ordered
--- NOTE | 2018-02-16 19:18 | PN- Orthopedic ---
Subjective Subjective: Postop check: Patient resting comfortably, sitter at bedside, patient confused, no voiced complaints Objective Vital Signs and I&Os Vital Signs Date Time Temp Pulse Resp B/P B/P Pulse O2 O2 Flow FiO2 Mean Ox Delivery Rate 02/16 1825 98.5 68 20 128/62 96 Nasal 4.0L Cannula 02/16 1505 97.8 70 18 140/70 90 Room Air 02/16 0538 97.4 60 20 152/80 97 Room Air 02/16 0253 97.8 56 20 158/82 98 Room Air 02/16 0225 97.3 57 16 168/72 97 02/16 0031 97.8 60 16 163/75 97 Room Air 02/15 2213 98.7 61 18 180/81 95 Room Air Intake & Output 02/16 1600 02/16 0800 02/16 0000 02/15 1600 02/15 0800 02/15 0000 Intake Total 300 300 0 Output Total 800 700 Balance -500 -400 0 Intake, IV 300 300 Intake, Oral 0 0 Number 0 Bowel Movements Output, Urine 800 700 Patient 122 lb 130 lb Weight Weight Bed scale Estimated Measurement Method Physical Exam: Sleeping, arousable, confused No respiratory distress Dressing to the right hip is clean dry and intact Minimal swelling of the right thigh Limited assessment of the bilateral lower extremity neurovascular status due to patient's clinical condition however motor function is present Assessment/Plan Assessment/Plan Postop day #0 status post right femur intramedullary nailing secondary to a right hip intertrochanteric fracture Perioperative antibiotics, Ancef 2 g every 8 hours 2 doses Regular diet. Pain medication as needed. DVT ppx:Lovenox 30 mg subcu daily starting tomorrow, note decreased dose from 40 mg secondary to increase intraoperative bleeding and risk for hematoma and need for transfusion. ALPS. Monitor for acute blood loss anemia, follow labs in a.m. Physical therapy, weightbearing as tolerated Medical care per primary team Dressing change postop day #2 by surgical team We will follow
--- NOTE | 2018-02-16 20:42 | RADIOLOGY REPORT ---
EXAMINATION: RIGHT HIP C-ARM IMAGING CLINICAL INFORMATION: Pinning right hip in OR. COMPARISON: Right hip 02/16/2018 TECHNIQUE: C-arm imaging right hip in OR. Fluoroscopy time: 29 seconds. Number of images: 5 FINDINGS: Patient has placement of a compression screw transfixing the proximal femoral fracture. IMPRESSION: Status post internal fixation of femoral fracture.
[2018-02-16 22:04] VITALS: BP 136/60
[2018-02-16 23:09] VITALS: BP 120/76
[2018-02-17 02:00] VITALS: BP 100/50
[2018-02-17 06:32] VITALS: BP 88/46
[2018-02-17 07:00] VITALS: BP 98/60
[2018-02-17 08:19] LABS: ABSOLUTE BASOPHIL COUNT 0 /CUMM (0.0-0.2); ABSOLUTE EOSINOPHIL COUNT 0.1 /CUMM (0.0-0.7); ABSOLUTE GRANULOCYTE CT 6.9 /CUMM (1.4-6.5); ABSOLUTE LYMPH COUNT 1.3 /CUMM (1.2-3.4); ABSOLUTE MONOCYTE COUNT 0.7 /CUMM (0.10-0.60); BASOPHIL % 0.3 % (0.0-2.0); EOSINOPHIL % 0.7 % (0-5); GRANULOCYTE % 76.6 % (42.2-75.2); PLATELET COUNT 185 /CUMM (130-400); RBC DISTRIBUTION WIDTH 13.7 % (11.5-14.5); RED BLOOD CELL CT 2.89 /CUMM (4.20-5.40)
--- NOTE | 2018-02-17 08:41 | PN- Housestaff ---
Garcia CAMPBELL,Gary 02/17/18 0841: Subjective Follow-up For: Right femur intramedullary rodding Complaints: no complaints Subjective: Patient is seen and examined at the bedside. She was not able to important complaint because of the baseline dementia. Review of Systems Constitutional: Reports: no symptoms. Comments: Cannot comment as patient is having dementia Objective Last 24 Hrs of Vital Signs/I&O Vital Signs Date Time Temp Pulse Resp B/P B/P Pulse O2 O2 Flow FiO2 Mean Ox Delivery Rate 02/17 1522 99.1 67 20 98/50 94 02/17 0800 95 Room Air Room Air 02/17 0700 98/60 02/17 0632 97.5 90 18 88/46 96 02/17 0200 97.8 68 16 100/50 96 Nasal 2.0L Cannula 02/17 0000 98 Nasal 2.0L Cannula 02/16 2309 98.4 65 18 120/76 100 02/16 2204 98.3 93 18 136/60 92 02/16 1825 98.5 68 20 128/62 96 Nasal 4.0L Cannula Intake & Output 02/17 1600 02/17 0800 02/17 0000 Intake Total 400 Output Total 250 150 Balance -250 400 -150 Intake, IV 400 Output, Urine 250 150 Patient 57.776 kg Weight Physical Exam General Appearance: Alert, Cooperative Cardiovascular: Normal S1, Normal S2 Lungs: Clear to Auscultation, Normal Air Movement Abdomen: Soft, No Tenderness Extremities: right hip dressing, clean Vascular: Normal Pulses Assessment/Plan Assessment: Patient is a 82-year-old female with past medical history of Alzheimer's dementia, hypothyroidism, anxiety, osteoporosis presented with chief complaints of fall and right hip fracture which was treated by Right femur intramedullary rodding on 02/16/2018. Postoperatively her hemoglobin dropped from 12 to 9. We discussed with Dr. Soliz he wanted to stop postoperative DVT prophylaxis until hemoglobin gets stabilized. Patient had episodes of arrhythmia possible SVT on overnight telemetry monitoring discussed with Dr. Gant advised for continued telemetry monitoring and supplement electrolytes and keep potassium more than 4 and magnesium more than 2. Vital signs -temperature 99.1, pulse 67, respiratory 20, blood pressure 98/50, SPO2 94% on room air. On examination -patient was alert, cooperative but not able to impart any complaint because of the baseline dementia. Assessment and plan - * Patient is continuously having low hemoglobin drops from 12 to 8.6. Examination she was having swelling in the right thigh. We stop the DVT prophylaxis heparin and will repeat the hemoglobin. Her blood pressure was 98/ 50. * According to Dr. Soliz, we will transfuse 2 units of PRBC and will repeat the hemoglobin tomorrow. * Patient was having episodes of SVT overnight, discussed with Dr. Gant he want to continue monitoring and telemetry and keep the potassium more than 4 and magnesium more than 2. * We will hold DVT prophylaxis until hemoglobin become stabilized * Pain medication according to the pain scale. Percocet every 6 as needed. * Diet regular diet * No DVT prophylaxis Problem List: 1. Intertrochanteric fracture of right hip Pain Ratin Pain Location: right hip Pain Goal: Remain pain free Pain Plan: Pain medication according the pain scale Tomorrow's Labs & Rationales: Follow-up CBC and BEP DVT/Prophylaxis: mechanical, pharmacological [place] CAMPBELL,Amir 02/17/18 1515: Attending Review Statement Attending Statement Attending MD Statement: examined this patient, discuss w/resident/PA/MIXER OPERATOR HOT METAL, agreed w/resident/PA/MIXER OPERATOR HOT METAL, reviewed EMR data (avail), discussed with nursing Attending Assessment/Plan: s/p Ortho surgery. Was tx to Tele floor --cont to monitor
--- NOTE | 2018-02-17 08:42 | PN- Orthopedic ---
Subjective Subjective: patient doing well today eating breakfast Objective Vital Signs and I&Os Vital Signs Date Time Temp Pulse Resp B/P B/P Pulse O2 O2 Flow FiO2 Mean Ox Delivery Rate 02/17 0632 97.5 90 18 88/46 96 02/17 0200 97.8 68 16 100/50 96 Nasal 2.0L Cannula 02/17 0000 98 Nasal 2.0L Cannula 02/16 2309 98.4 65 18 120/76 100 02/16 2204 98.3 93 18 136/60 92 02/16 1825 98.5 68 20 128/62 96 Nasal 4.0L Cannula 02/16 1505 97.8 70 18 140/70 90 Room Air Intake & Output 02/17 1600 02/17 0800 02/17 0000 02/16 1600 02/16 0800 02/16 0000 Intake Total 400 300 300 0 Output Total 150 800 700 Balance 400 -150 -500 -400 0 Intake, IV 400 300 300 Intake, Oral 0 0 Number 0 Bowel Movements Output, Urine 150 800 700 Patient 127 lb 122 lb 130 lb Weight Weight Bed scale Estimated Measurement Method Physical Exam: patient alert sitting up with breakfast dressing clean dry toes mobile neuro intact ambulate WBAT straight flexion extension ok with the operative hip no forceful rotation. Assessment/Plan Assessment/Plan doing well s/p IM rodding right femur CBC not back yet OOB with PT WBAT finish antibiotics start anticoagulation later today want 24 hours after surgery. Core Measures Venous Thromboembolism VTE Risk Factors Age>40 No Mechanical VTE Prophylaxis d/t N/A MechProphylax Ordered No VTE Pharm Prophylaxis d/t NA PharmProphylax ordered Attending MD Review Statement Attending Statement Attending MD Statement: examined this patient
[2018-02-17 15:22] VITALS: BP 98/50
[2018-02-17 15:54] LABS: ABSOLUTE BASOPHIL COUNT 0 /CUMM (0.0-0.2); ABSOLUTE EOSINOPHIL COUNT 0.1 /CUMM (0.0-0.7); ABSOLUTE LYMPH COUNT 1.2 /CUMM (1.2-3.4); ABSOLUTE MONOCYTE COUNT 0.9 /CUMM (0.10-0.60); BASOPHIL % 0.3 % (0.0-2.0); EOSINOPHIL % 0.8 % (0-5); HEMATOCRIT 25.8 % (37-47); MEAN CORPUSCULAR HGB 31.7 PG (27.0-31.0); MEAN CORPUSCULAR HGB CONC 33.2 G/DL (33.0-37.0); MEAN CORPUSCULAR VOLUME 95.4 FL (81.0-99.0); MEAN PLATELET VOLUME 7.8 FL (7.4-10.4); PLATELET COUNT 168 /CUMM (130-400); RBC DISTRIBUTION WIDTH 14.1 % (11.5-14.5); RED BLOOD CELL CT 2.71 /CUMM (4.20-5.40); WHITE BLOOD CELL COUNT 9.2 /CUMM (4.8-10.8)
--- NOTE | 2018-02-17 17:15 | PN- Cardiology ---
Subjective Subjective: No complaints, but has dementia. Sinus rhythm with LBBB on monitor. Objective Vital Signs and I&Os Vital Signs Date Time Temp Pulse Resp B/P B/P Pulse O2 O2 Flow FiO2 Mean Ox Delivery Rate 02/17 1600 95 Room Air 02/17 1522 99.1 67 20 98/50 94 02/17 0800 95 Room Air Room Air 02/17 0700 98/60 02/17 0632 97.5 90 18 88/46 96 02/17 0200 97.8 68 16 100/50 96 Nasal 2.0L Cannula 02/17 0000 98 Nasal 2.0L Cannula 02/16 2309 98.4 65 18 120/76 100 02/16 2204 98.3 93 18 136/60 92 02/16 1825 98.5 68 20 128/62 96 Nasal 4.0L Cannula Intake & Output 02/17 1600 02/17 0800 02/17 0000 02/16 1600 02/16 0800 02/16 0000 Intake Total 900 400 300 300 0 Output Total 250 150 800 700 Balance 650 400 -150 -500 -400 0 Intake, IV 150 400 300 300 Intake, Oral 750 0 0 Number 0 Bowel Movements Output, Urine 250 150 800 700 Patient 127 lb 122 lb 130 lb Weight Weight Bed scale Estimated Measurement Method Physical Exam: Well-developed, pale appearing elderly female in no acute distress. Vital signs: See above. HEENT: Normocephalic, atraumatic, EOMI, slightly dry mucous membranes. Neck: No JVD, no bruits. Lungs: Clear to auscultation bilaterally. Heart: S1, S2 with grade 1-2/6 systolic murmur. No gallop or rub. Abdomen: Soft, nontender, positive bowel sounds. Extremities: No edema. Current Medications: Current Medications Sig/Nela Start time Last Medication Dose Route Stop Time Status Admin Acetaminophen 1,000 MG .STK-MED ONE 02/17 0120 DC IV 02/17 0121 Acetaminophen 1,000 MG Q8P PRN 02/16 0200 AC 02/17 IV 1000 Cefazolin Sodium 2 GM IQ8 02/17 0000 DC 02/17 N/A 1 UNIT IV 02/17 0829 0819 Enoxaparin Sodium 30 MG DAILY 02/17 0900 DC 02/17 SC 0819 Levothyroxine Sodium 0.1 MG DAILY 02/18 09 AC PO Levothyroxine Sodium 50 MCG DAILY 02/16 0900 DC 02/17 IV 1150 Oxycodone/ 1 TAB Q6P PRN 02/17 1130 AC Acetaminophen PO Potassium Chloride 40 MEQ ONCE ONE 02/17 1500 DC 02/17 PO 02/17 1501 1553 Rivastigmine 9.5 MG DAILY 02/16 0900 AC 02/17 TOP 0819 Sodium Chloride 1,000 ML Q20H 02/16 0200 DC 02/16 IV 2223 Results Last 48 Hrs of Labs/Mics: Laboratory Tests 02/17/18 1445: Anion Gap 8, Estimated GFR > 60, BUN/Creatinine Ratio 22.5, Magnesium 1.9, CBC w Diff NO MAN DIFF REQ, RBC 2.71 L, MCV 95.4, MCH 31.7 H, MCHC 33.2, RDW 14.1, MPV 7.8, Gran % 76.0 H, Lymphocytes % 13.3 L, Monocytes % 9.6 H, Eosinophils % 0.8, Basophils % 0.3, Absolute Granulocytes 7.0 H, Absolute Lymphocytes 1.2, Absolute Monocytes 0.9 H, Absolute Eosinophils 0.1, Absolute Basophils 0 02/17/18 0625: Anion Gap 8, Estimated GFR > 60, BUN/Creatinine Ratio 20.0, CBC w Diff NO MAN DIFF REQ, RBC 2.89 L, MCV 97.0, MCH 32.0 H, MCHC 33.0, RDW 13.7, MPV 8.0, Gran % 76.6 H, Lymphocytes % 14.7 L, Monocytes % 7.7, Eosinophils % 0.7, Basophils % 0.3, Absolute Granulocytes 6.9 H, Absolute Lymphocytes 1.3, Absolute Monocytes 0.7 H, Absolute Eosinophils 0.1, Absolute Basophils 0 02/16/18 0635: Anion Gap 8, Estimated GFR > 60, BUN/Creatinine Ratio 28.3 H, CBC w Diff NO MAN DIFF REQ, RBC 3.69 L, MCV 95.3, MCH 32.5 H, MCHC 34.1, RDW 13.8, MPV 7.8, Gran % 88.7 H, Lymphocytes % 6.4 L, Monocytes % 4.7, Eosinophils % 0.1, Basophils % 0.1, Absolute Granulocytes 8.1 H, Absolute Lymphocytes 0.6 L, Absolute Monocytes 0.4, Absolute Eosinophils 0, Absolute Basophils 0 02/16/18 0015: Urine Color YEL, Urine Clarity HAZY H, Urine pH 8.5 H, Ur Specific [place] 1.010, Urine Protein TRACE H, Urine Ketones NEG, Urine Nitrite POS H, Urine Bilirubin NEG, Urine Urobilinogen 0.2, Ur Leukocyte Esterase SMALL H, Ur Microscopic SEDIMENT EXAMINED, Urine RBC RARE, Urine WBC 1-3 H, Urine Bacteria MANY H, Urine Hemoglobin TRACE-INTACT, Urine Glucose NEG 02/15/18 2300: Anion Gap 9, Estimated GFR > 60, BUN/Creatinine Ratio 26.3 H, Glucose 115 H, Calcium 8.8, Total Bilirubin 0.2, AST 17, ALT 25, Alkaline Phosphatase 85, Creatine Kinase 22 L, Troponin I < 0.01, Total Protein 6.4, Albumin 3.4 L, Globulin 3.0, Albumin/Globulin Ratio 1.1, PT 11.8, INR 1.08, APTT 24 L, CBC w Diff NO MAN DIFF REQ, RBC 4.17 L, MCV 95.3, MCH 31.6 H, MCHC 33.2, RDW 13.8, MPV 7.6, Gran % 79.6 H, Lymphocytes % 11.1 L, Monocytes % 6.2, Eosinophils % 2.6, Basophils % 0.5, Absolute Granulocytes 6.7 H, Absolute Lymphocytes 0.9 L, Absolute Monocytes 0.5, Absolute Eosinophils 0.2, Absolute Basophils 0 Recent Imaging Studies: Echocardiogram 02/16/2018 * Normal global left ventricular size, wall thickness, systolic function with no obvious regional wall motion abnormalities. Normal left ventricular ejection fraction visually estimated at 65%. Mildly increased resting left ventricular outflow tract velocity (1.35 m/s). Abnormal relaxation filling pattern of the left ventricle. * Normal right ventricular size and function. * Normal right atrial size. Mild left atrial dilatation. * Trace mitral regurgitation. Mild aortic stenosis. Mild aortic regurgitation. Mild tricuspid regurgitation. Assessment/Plan Assessment/Plan [id number] w/ hx of Alzheimer's dementia, hypothyroidism 2/2 thyroid resection, osteoporosis, and anxiety disorder who presented to the ED from her SNF ( [facility]) following an unwitnessed fall during which she sustained an intertrochanteric fracture of her right femur for which orthopedic surgery was performed 02/16/2018 (right femur intramedullary rodding). Ms. Lal cannot give any reliable history as a result of her dementia, but her H/H has dropped more than expected and the plan will be to contact orthopedic surgery (Raphael Soliz MD) regarding possible transfusion. Recommendations: * Await recommendations from orthopedic surgery regarding possible transfusion, anticoagulation, etc. * Follow-up H/H closely. Continue telemetry? Yes
[2018-02-17 22:07] VITALS: BP 128/76
[2018-02-17 23:18] VITALS: BP 131/69
[2018-02-18 06:30] VITALS: BP 142/62
--- NOTE | 2018-02-18 07:34 | PN- Housestaff ---
Subjective Follow-up For: Right femur fracture Left bundle-branch block Subjective: Patient seen and examined. Apparently she was confused and picking at her lines last night so a sitter was ordered. The patient denies any pain, shortness of breath, dysuria, cough. On 02/16 she had a right femur intramedullary rodding for a right intertrochanteric hip fracture. Patient's pain is well-controlled on Percocet and Zofran of. Apparently patient did have a mild "fever" overnight temperature 100.1. UA and urine culture to show evidence of infection with Proteus. Patient is status post 1 unit of packed red blood cells for a drop in H&H post surgery. The patient did lose between 50 and 100 mL of blood. Review of Systems Constitutional: Reports: no symptoms. EENTM: Reports: no symptoms. Cardiovascular: Reports: no symptoms. Respiratory: Reports: no symptoms. Gastrointestinal: Reports: no symptoms. Genitourinary: Reports: no symptoms. Musculoskeletal: Reports: no symptoms. Skin: Reports: no symptoms. Neurological/Psychological: Reports: confusion, dementia. Objective Last 24 Hrs of Vital Signs/I&O Vital Signs Date Time Temp Pulse Resp B/P B/P Pulse O2 O2 Flow FiO2 Mean Ox Delivery Rate 02/18 1526 Room Air Room Air 02/18 1447 98.2 56 18 138/60 97 Room Air 02/18 0630 98.0 58 20 142/62 96 02/17 2318 100.1 67 18 131/69 94 02/17 2207 100.1 68 16 128/76 97 Intake & Output 02/18 1600 02/18 0800 02/18 0000 Intake Total 500 515 Output Total 350 350 300 Balance 150 -350 215 Intake, Blood 450 Product Intake, IV 0 65 Intake, Oral 500 Number 0 Bowel Movements Output, Urine 350 350 300 Patient 128 lb Weight Physical Exam General Appearance: Alert, Cooperative, No Acute Distress Skin: No Rashes, No Breakdown, No Significant Lesion Skin Temp/Moisture Exam: Warm/Dry Sepsis Skin Exam (color): Normal for Ethnicity Neck: Supple, No JVD Cardiovascular: Regular Rate, Normal S1, Normal S2 Lungs: Clear to Auscultation, Normal Air Movement Abdomen: Normal Bowel Sounds, Soft, No Tenderness Neurological: Normal Speech Extremities: No Clubbing, No Cyanosis, No Edema, Normal Pulses, No Tenderness/ Swelling Current Medications: Current Medications Sig/Nela Start time Last Medication Dose Route Stop Time Status Admin Acetaminophen 1,000 MG Q8P PRN 02/16 0200 AC 02/17 IV 1000 Cephalexin 500 MG BID 02/18 1124 AC 02/18 PO 1202 Enoxaparin Sodium 30 MG DAILY 02/19 0900 AC SC Levothyroxine Sodium 0.1 MG DAILY 02/18 0900 AC 02/18 PO 0806 Oxycodone/ 1 TAB Q6P PRN 02/17 1130 AC 02/18 Acetaminophen PO 1005 Rivastigmine 9.5 MG DAILY 02/16 09 02/18 TOP 0807 Last 24 Hrs of Lab/Slick Results Last 24 Hrs of Labs/Mics: Laboratory Tests 02/18/18 0928: Anion Gap 6, Estimated GFR > 60, BUN/Creatinine Ratio 21.7, CBC w Diff NO MAN DIFF REQ, RBC 3.11 L, MCV 95.1, MCH 31.9 H, MCHC 33.5, RDW 14.8 H, MPV 7.6, Gran % 81.2 H, Lymphocytes % 9.1 L, Monocytes % 6.2, Eosinophils % 2.9, Basophils % 0.6, Absolute Granulocytes 7.4 H, Absolute Lymphocytes 0.8 L, Absolute Monocytes 0.6, Absolute Eosinophils 0.3, Absolute Basophils 0.1 Assessment/Plan Assessment: Patient is a 82-year-old female with past medical history of Alzheimer's dementia, hypothyroidism, anxiety, osteoporosis presented with chief complaints of fall and right hip fracture which was treated by Right femur intramedullary rodding on 02/16/2018. Postoperatively her hemoglobin dropped from 12 to 9. We discussed with Dr. Soliz he wanted to stop postoperative DVT prophylaxis until hemoglobin gets stabilized. Patient had episodes of arrhythmia possible SVT on overnight telemetry monitoring discussed with Dr. Gant advised for continued telemetry monitoring and supplement electrolytes and keep potassium more than 4 and magnesium more than 2. Vital signs -temperature 99.1, pulse 67, respiratory 20, blood pressure 98/50, SPO2 94% on room air. Assessment and plan - * Patient is day 2 status post right femur intramedullary rodding for right intertrochanteric hip fracture * Patient is continuously having low hemoglobin drops from 12 to 8.6. Examination she was having swelling in the right thigh. We stop the DVT prophylaxis heparin and gave one unit of blood. Repeat CBC showed good rebound if hemoglobin level so we will monitor before giving another unit. * Patient was having episodes of SVT overnight, discussed with Dr. Gant he want to continue monitoring and telemetry and keep the potassium more than 4 and magnesium more than 2. He should have echocardiogram showed no obvious regional wall motion abnormalities and an EF of 65%. She does have a new left bundle branch block found on EKG but negative troponins and no evidence of ACS. * Pain medication according to the pain scale. Percocet every 6 as needed and IV Tylenol. Note patient is demented and communication of pain may be complicated by that area. As patient has low pain and can move, we will DC [place]. * Patient was found to have a low fever overnight with positive UA as well as U culture for Proteus. We will start by mouth Keflex 500 mg twice a day daily. We also evaluated for pneumonia as the cause of fever with a chest x-ray which is found to be negative. * Patient was evaluated by PT and is suggesting S TR. Orthopedics is suggesting out of bed weightbearing as tolerated. * Diet regular diet * We have started Lovenox for DVT prophylaxis Problem List: 1. Intertrochanteric fracture of right hip Pain Ratin Pain Location: na Pain Goal: Remain pain free Pain Plan: na Tomorrow's Labs & Rationales: na
--- NOTE | 2018-02-18 08:05 | PN- Orthopedic ---
Subjective Subjective: No acute overnight events reported by staff. Patient pleasantly confused, denies any discomfort. Objective Vital Signs and I&Os Vital Signs Date Time Temp Pulse Resp B/P B/P Pulse O2 O2 Flow FiO2 Mean Ox Delivery Rate 02/18 0630 98.0 58 20 142/62 96 02/17 2318 100.1 67 18 131/69 94 02/17 2207 100.1 68 16 128/76 97 02/17 1600 95 Room Air 02/17 1522 99.1 67 20 98/50 94 02/17 0800 95 Room Air Room Air Intake & Output 02/18 0800 02/18 0000 02/17 1600 02/17 0800 02/17 0000 02/16 1600 Intake Total 515 900 400 300 Output Total 300 250 150 800 Balance 215 650 400 -150 -500 Intake, Blood 450 Product Intake, IV 65 150 400 300 Intake, Oral 750 0 Number 0 Bowel Movements Output, Urine 300 250 150 800 Patient 128 lb 127 lb Weight Physical Exam: General: No distress, aware of person, not aware of place or time Cardiac: RRR, s1s2 Pulm: CTA, non-labored respiratory effort Abd: Non-distended, non-tender Extremities: Moves all extremities, distal sensation grossly intact. Skin warm and well perfused. Distal pulses palpable bilateral lower extremities. Bilateral calves soft and non-tender Surgical site: R thigh, dressing dry and intact, removed, skin edges well approximated with jackie. Edema noted in thigh, compartment remains soft. Some ecchymosis, no erythema. Clean dry dressing reapplied. Assessment/Plan Assessment/Plan This is a 82 year old female, POD 2, s/p ORIF R intertroch fracture Surgical recommendations: -DVT ppx: Continue lovenox for dvt ppx x6 weeks -Activity: OOB, wbat -Dressing: Daily dry dressing changes -Klemme: To be removed in 14 days from date of surgery -Follow up: Follow up with Dr. Soliz in 2 weeks Primary care to be through medical team, surgery remains available as consulting team. Will discuss with Dr. Soliz Core Measures Venous Thromboembolism VTE Risk Factors Age>40 No Mechanical VTE Prophylaxis d/t N/A MechProphylax Ordered No VTE Pharm Prophylaxis d/t NA PharmProphylax ordered
[2018-02-18 10:06] LABS: ABSOLUTE BASOPHIL COUNT 0.1 /CUMM (0.0-0.2); ABSOLUTE EOSINOPHIL COUNT 0.3 /CUMM (0.0-0.7); ABSOLUTE GRANULOCYTE CT 7.4 /CUMM (1.4-6.5); ABSOLUTE LYMPH COUNT 0.8 /CUMM (1.2-3.4); ABSOLUTE MONOCYTE COUNT 0.6 /CUMM (0.10-0.60); BASOPHIL % 0.6 % (0.0-2.0); EOSINOPHIL % 2.9 % (0-5); GRANULOCYTE % 81.2 % (42.2-75.2); HEMATOCRIT 29.6 % (37-47); MEAN CORPUSCULAR HGB 31.9 PG (27.0-31.0); MEAN CORPUSCULAR HGB CONC 33.5 G/DL (33.0-37.0); MEAN CORPUSCULAR VOLUME 95.1 FL (81.0-99.0); MEAN PLATELET VOLUME 7.6 FL (7.4-10.4); PLATELET COUNT 170 /CUMM (130-400); RBC DISTRIBUTION WIDTH 14.8 % (11.5-14.5); RED BLOOD CELL CT 3.11 /CUMM (4.20-5.40); WHITE BLOOD CELL COUNT 9.1 /CUMM (4.8-10.8)
--- NOTE | 2018-02-18 12:01 | PN- Att Addend ---
Attending Addendum Attending Brief Note Patient seen and examined, she is confused. Patient was not able to communicate properly secondary to having dementia. Vital Signs Date Time Temp Pulse Resp B/P B/P Pulse O2 O2 Flow FiO2 Mean Ox Delivery Rate 02/18 0630 98.0 58 20 142/62 96 02/17 2318 100.1 67 18 131/69 94 02/17 2207 100.1 68 16 128/76 97 02/17 1600 95 Room Air 02/17 1522 99.1 67 20 98/50 94 on exam; awake, nad. cv; s1,s2, rrr resp; clear abd; soft, nt, bs+ ext; no edema Laboratory Tests 02/18 02/17 0928 1445 Chemistry Sodium (137 - 145 mmol/L) 140 139 Potassium (3.5 - 5.1 mmol/L) 3.7 3.7 Chloride (98 - 107 mmol/L) 107 107 Carbon Dioxide (22 - 30 mmol/L) 27 24 Anion Gap (5 - 16) 6 8 BUN (7 - 17 mg/dL) 13 18 H Creatinine (0.5 - 1.0 mg/dL) 0.6 0.8 Estimated GFR (>60 ml/min) > 60 > 60 BUN/Creatinine Ratio (7 - 25 %) 21.7 22.5 Magnesium (1.6 - 2.3 mg/dL) 1.9 Hematology CBC w Diff NO MAN DIFF REQ NO MAN DIFF REQ WBC (4.8 - 10.8 /CUMM) 9.1 9.2 RBC (4.20 - 5.40 /CUMM) 3.11 L 2.71 L Hgb (12.0 - 16.0 G/DL) 9.9 L 8.6 L Hct (37 - 47 %) 29.6 L 25.8 L MCV (81.0 - 99.0 FL) 95.1 95.4 MCH (27.0 - 31.0 PG) 31.9 H 31.7 H MCHC (33.0 - 37.0 G/DL) 33.5 33.2 RDW (11.5 - 14.5 %) 14.8 H 14.1 Plt Count (130 - 400 /CUMM) 170 168 MPV (7.4 - 10.4 FL) 7.6 7.8 Gran % (42.2 - 75.2 %) 81.2 H 76.0 H Lymphocytes % (20.5 - 51.1 %) 9.1 L 13.3 L Monocytes % (1.7 - 9.3 %) 6.2 9.6 H Eosinophils % (0 - 5 %) 2.9 0.8 Basophils % (0.0 - 2.0 %) 0.6 0.3 Absolute Granulocytes (1.4 - 6.5 /CUMM) 7.4 H 7.0 H Absolute Lymphocytes (1.2 - 3.4 /CUMM) 0.8 L 1.2 Absolute Monocytes (0.10 - 0.60 /CUMM) 0.6 0.9 H Absolute Eosinophils (0.0 - 0.7 /CUMM) 0.3 0.1 Absolute Basophils (0.0 - 0.2 /CUMM) 0.1 0 A/P; 82 y/o F with pmh sig for Alzheimer's dementia, hypothyroidism, anxiety, osteoporosis admitted with fall and right hip fracture s/p Right femur intramedullary rodding on 02/16/2018. Pt is confused and has underlying dementia. Patient had a low-grade temp last night. Urine culture growing Proteus. Patient unable to communicate properly secondary to having advanced dementia therefore not able to elicit any symptoms. Will start the oral Keflex. Would also check a chest x-ray to make sure there is no other source of infection. Continue other current medications. Patient is from [facility], would likely go back to daily note. H&H stable therefore no need to transfuse more blood. DVT px: Please continue Lovenox.
--- NOTE | 2018-02-18 14:16 | RADIOLOGY REPORT ---
EXAMINATION: XR PORTABLE CHEST CLINICAL INFORMATION: Low-grade fever. COMPARISON: Chest CT from 02/15/2018 TECHNIQUE: Portable frontal view of the chest was obtained. FINDINGS: Lungs are symmetrically hypoinflated and grossly clear. No pulmonary edema, focal consolidation or pleural effusion. Cardiac silhouette is borderline enlarged. Bone density is diffusely decreased. IMPRESSION: No evidence of pneumonia.
--- NOTE | 2018-02-18 14:36 | PN- Orthopedic ---
Subjective Subjective: patient lying in bed comfortably Objective Vital Signs and I&Os Vital Signs Date Time Temp Pulse Resp B/P B/P Pulse O2 O2 Flow FiO2 Mean Ox Delivery Rate 02/18 0630 98.0 58 20 142/62 96 02/17 2318 100.1 67 18 131/69 94 02/17 2207 100.1 68 16 128/76 97 02/17 1600 95 Room Air 02/17 1522 99.1 67 20 98/50 94 Intake & Output 02/18 1600 02/18 0800 02/18 0000 02/17 1600 02/17 0800 02/17 0000 Intake Total 515 900 400 Output Total 350 300 250 150 Balance -350 215 650 400 -150 Intake, Blood 450 Product Intake, IV 65 150 400 Intake, Oral 750 Output, Urine 350 300 250 150 Patient 128 lb 127 lb Weight Physical Exam: patient alert right thigh soft no signs of any issues moving toes and ankle. wound clean. Assessment/Plan Assessment/Plan patient doing well after right femur fracture nedded transfusion which is expected with her fracture. labs stable currently. patient can ambulate WBAT. will need assistance soes not follow commands. Core Measures Venous Thromboembolism VTE Risk Factors Age>40 No Mechanical VTE Prophylaxis d/t N/A MechProphylax Ordered No VTE Pharm Prophylaxis d/t NA PharmProphylax ordered Attending MD Review Statement Attending Statement Attending MD Statement: examined this patient
[2018-02-18 14:47] VITALS: BP 138/60
[2018-02-18 21:19] VITALS: BP 160/54
[2018-02-19 07:02] VITALS: BP 147/49
--- NOTE | 2018-02-19 07:42 | PN- Housestaff ---
Subjective Follow-up For: right femur fracture Subjective: Patient is demented at baseline. States that she has no pain although has been noted to be yelling and grimacing when she moves. She has substantial bruising in her groin and around her surgical incision site. She has required Raz lift for movement. Patient was noted to be more confused yesterday. She says she slept well last night. Patient is to be discharged today but has had not had a bowel movement for 3 days. Review of Systems Constitutional: Reports: no symptoms. EENTM: Reports: no symptoms. Cardiovascular: Reports: no symptoms. Respiratory: Reports: no symptoms. Gastrointestinal: Reports: no symptoms. Musculoskeletal: Reports: joint pain, muscle pain. Skin: Reports: no symptoms. Neurological/Psychological: Reports: no symptoms. Objective Last 24 Hrs of Vital Signs/I&O Vital Signs Date Time Temp Pulse Resp B/P B/P Pulse O2 O2 Flow FiO2 Mean Ox Delivery Rate 02/19 1650 98.0 70 19 130/56 97 Room Air 02/19 1500 98.0 70 20 130/56 97 Room Air 02/19 1353 99.7 61 17 147/49 02/19 0702 99.7 61 17 147/49 97 02/18 2119 99.2 61 17 160/54 94 Room Air Intake & Output 02/19 1600 02/19 0800 02/19 0000 Intake Total 600 120 240 Output Total Balance 600 120 240 Intake, IV 0 Intake, Oral 600 120 240 Number 0 0 Bowel Movements Physical Exam General Appearance: Alert, Cooperative, No Acute Distress Skin: No Rashes, No Breakdown, No Significant Lesion Skin Temp/Moisture Exam: Warm/Dry Sepsis Skin Exam (color): Normal for Ethnicity HEENT: Atraumatic, PERRLA, EOMI, Mucous Membr. moist/pink Cardiovascular: Regular Rate, Normal S1, Normal S2, No Murmurs Lungs: Clear to Auscultation, Normal Air Movement Abdomen: Normal Bowel Sounds, Soft, No Tenderness Neurological: Normal Speech Extremities: No Clubbing, No Cyanosis Vascular: Normal Pulses, Pulses Symmetrical Sepsis Peripheral Pulse Location: Radial Sepsis Peripheral Pulse Exam: Normal Current Medications: Current Medications Sig/Nela Start time Last Medication Dose Route Stop Time Status Admin Acetaminophen 1,000 MG Q8P PRN 02/16 0200 AC 02/17 IV 1000 Bisacodyl 10 MG 1030 02/19 1500 DC 02/19 MO 02/19 1501 1500 Bisacodyl 10 MG 1030 02/19 1030 DC MO 02/19 1031 Cephalexin 500 MG BID 02/18 1124 AC 02/19 PO 0901 Duloxetine HCl 30 MG DAILY 02/19 1016 AC 02/19 PO 1136 Enoxaparin Sodium 30 MG DAILY 02/19 0900 AC 02/19 SC 0901 Levothyroxine Sodium 0.1 MG DAILY 02/18 0900 AC 02/19 PO 0901 Oxycodone/ 1 TAB Q6P PRN 02/17 1130 AC 02/18 Acetaminophen PO 1005 Patient Medication 1 ED ONE ONE 02/19 1700 DC Teaching ED 02/19 1701 Polyethylene Glycol 17 GM DAILY 02/19 1015 AC 02/19 PO 1136 Rivastigmine 9.5 MG DAILY 02/16 0900 AC 02/19 TOP 0901 Senna/Docusate Sodium 1 TAB BID 02/19 1015 AC 02/19 PO 1216 Last 24 Hrs of Lab/Slick Results Last 24 Hrs of Labs/Mics: Laboratory Tests 02/19/18 0733: CBC w Diff NO MAN DIFF REQ, RBC 3.22 L, MCV 93.9, MCH 32.1 H, MCHC 34.2, RDW 14.2, MPV 7.6, Gran % 80.2 H, Lymphocytes % 10.8 L, Monocytes % 5.2, Eosinophils % 3.3, Basophils % 0.5, Absolute Granulocytes 7.6 H, Absolute Lymphocytes 1.0 L, Absolute Monocytes 0.5, Absolute Eosinophils 0.3, Absolute Basophils 0 Assessment/Plan Assessment: Patient is a 82-year-old female with past medical history of Alzheimer's dementia, hypothyroidism, anxiety, osteoporosis presented with chief complaints of fall and right hip fracture which was treated by Right femur intramedullary rodding on 02/16/2018. Postoperatively her hemoglobin dropped from 12 to 9. We discussed with Dr. Soliz he wanted to stop postoperative DVT prophylaxis until hemoglobin gets stabilized. Patient had episodes of arrhythmia possible SVT on overnight telemetry monitoring discussed with Dr. Gant advised for continued telemetry monitoring and supplement electrolytes and keep potassium more than 4 and magnesium more than 2. Vital signs -temperature 99.1, pulse 67, respiratory 20, blood pressure 98/50, SPO2 94% on room air. Assessment and plan - * Patient is day 3 status post right femur intramedullary rodding for right intertrochanteric hip fracture * Patient is continuously having low hemoglobin drops from 12 to 8.6. Examination she was having swelling in the right thigh. We stopped the DVT prophylaxis heparin and gave one unit of blood. Repeat CBC showed good rebound if hemoglobin level so we will monitor before giving another unit. Hb is stable today and she luis enrique follow up with PCP. * Patient was having episodes of SVT overnight, discussed with Dr. Gant he want to continue monitoring and telemetry and keep the potassium more than 4 and magnesium more than 2. He should have echocardiogram showed no obvious regional wall motion abnormalities and an EF of 65%. She does have a new left bundle branch block found on EKG but negative troponins and no evidence of ACS. * Pain medication according to the pain scale. Percocet every 6 as needed and IV Tylenol. Note patient is demented and communication of pain may be complicated by that area. * Patient was found to have a low fever overnight with positive UA as well as U culture for Proteus. We will start by mouth Keflex 500 mg twice a day daily. We also evaluated for pneumonia as the cause of fever with a chest x-ray which is found to be negative. She will be on keflex 500mg bid for total 7 days. * Patient was evaluated by PT and is suggesting S TR. Orthopedics is suggesting out of bed weightbearing as tolerated. * Bowel regimin before being discharged * Diet regular diet * We have started Lovenox for DVT prophylaxis and will continue for 4 weeks with ortho follow up in 2 weeks. Problem List: 1. Intertrochanteric fracture of right hip Pain Ratin Pain Location: na Pain Goal: Remain pain free Pain Plan: na Tomorrow's Labs & Rationales: na
--- NOTE | 2018-02-19 07:47 | Patient Discharge Instructions ---
Discharge Instructions General Discharge Information You were seen/treated for: Fracture right femur Special Instructions: 1. please follow up with pcp one week 2. please follow up with orthopedist in two weeks Diet Continue normal diet: Yes Activity Full Activity/No Limits: Yes (weight bearing as tolerated) Activity Self Limited: Yes Activity Limited to: Weight bear as tolerated Acute Coronary Syndrome Inclusion Criteria At DC or during hospital stay patient has or had the following: ACS DIAGNOSIS No Discharge Core Measures Meds if any: Prescribed or Continued at Discharge Meds if any: NOT Prescribed or Continued at Discharge Congestive Heart Failure Inclusion Criteria At DC or during hospital stay patient has or had the following: CHF DIAGNOSIS No Discharge Core Measures Meds if any: Prescribed or Continued at Discharge Meds if any: NOT Prescribed or Continued at Discharge Cerebrovascular accident Inclusion Criteria At DC or during hospital stay patient has or had the following: CVA/TIA Diagnosis No Discharge Core Measures Meds if any: Prescribed or Continued at Discharge Meds if any: NOT Prescribed or Continued at Discharge Venous thromboembolism Inclusion Criteria VTE Diagnosis No VTE Type NONE VTE Confirmed by (Test) NONE Discharge Core Measures - Per Current guidelines, there needs to be overlap - treatment for the first 5 days of Warfarin therapy. - If discharged on Warfarin prior to 5 days of - overlap therapy, the patient will need to be - assessed for post discharge needs including - *Post discharge parental anticoagulation - *Warfarin and/or parental anticoagulation education - *Follow up date to check INR post discharge At least 5 days overlap therapy as Inpatient No Meds if any: Prescribed or Continued at Discharge Note: Overlap Therapy is Warfarin and Anticoagulant Meds if any: NOT Prescribed or Continued at Discharge
--- NOTE | 2018-02-19 07:48 | Discharge Summary ---
Visit Information Visit Dates Admission Date: 02/16/18 Discharge Date: 02/19/18 Hospital Course Course Attending Physician: Rina Price MD Primary Care Physician: Malcolm Nova MD Hospital Course: Patient is a 82-year-old female with past medical history of Alzheimer's dementia, hypothyroidism, anxiety, osteoporosis presented with chief complaints of fall and right hip fracture which was treated by right femur intramedullary rodding on 02/16/2018. Patient was cleared from a cardiac standpoint preoperatively with echocardiogram showing no obvious regional wall motion abnormalities, ejection fraction 65%, abnormal relaxation filling pattern of the left ventricle, trace mitral regurg. She was found to have new evidence of left bundle branch block on her 12-lead EKG compared to the last tracing we have on file from 2001. According to the talent development specialist, the presence of left bundle branch block and patients undergoing noncardiac surgery is not associated with an increase in postoperative cardiac complications but it is associated with a nonsignificant increase in perioperative mortality as a result of non- cardiovascular complications. 4 asymptomatic individuals, which Jeanine was, with an isolated LBBB and no other evidence of cardiac disease, no specific therapy is required. Postoperatively her hemoglobin dropped from 12 to 9, she had reported 50 mL to 100 mL of blood loss intraoperatively. She received 1 unit of blood. Patient's hemoglobin rebounded to 9.9 and DVT prophylaxis with Lovenox was started on 02/17, 24 hours after surgery. Patient postsurgically had episodes of arrhythmia with SVT on overnight telemetry monitoring discussed with Dr. Gant, talent development specialist who advised for continued telemetry monitoring and supplement electrolytes, to keep potassium more than 4 and magnesium more than 2. After surgery, patient received physical therapy who suggested SCR. Patient is to be out of bed and weightbearing as tolerated. Pain medication was Percocet every 6 as needed and IV Tylenol. Note patient is demented and communication of pain may be complicated by that. Patient reported low pain every day but on movement appeared to be in significantly more pain. Additionally, patient was found to have a low fever during her stay, 2 days postoperatively, with positive UA as well as U culture for Proteus. We started by mouth Keflex 500 mg twice a day daily. We also discontinued her Jacobson that she had from surgery. We also evaluated for pneumonia as the cause of fever with a chest x-ray which was found to be negative. Patient is discharged on 4 more weeks of subcutaneous Lovenox and is to follow- up with Dr. Soliz in 2 weeks. Allergies: Coded Allergies: donepezil (PER 02/15/18) Disposition Summary Disposition Principal Diagnosis: Right femur fracture. Acute blood loss anemia Additional Diagnosis: UTI Discharge Disposition: SNF Discharge Instructions General Discharge Information Code Status: Do Not Resucitate/Intubat Patient's Diet: Regular Patient's Activity: Weightbearing as tolerated Follow-Up Instructions/Appts: 1. please follow up with pcp one week 2. please follow up with orthopedist in two weeks Medications at Discharge Discharge Medications: Continue taking these medications: Levothyroxine Sodium (Levothyroxine Sodium) 100 MCG TABLET 1 Tablet ORAL DAILY Comments: Last Taken: 02/19/18 Time: 0900 Citalopram Hydrobromide (Citalopram HBr) 20 MG TABLET 1 Tablet ORAL DAILY Comments: NOT GIVEN Rivastigmine (Exelon) 9.5 MG/Patch PAT 1 Patch On the skin DAILY Comments: Last Taken: 02/19/18 Time: 0900 Melatonin (Melatonin) 3 MG TABLET 1 Tablet ORAL TAKE AT BEDTIME Comments: NOT GIVEN Magnesium Hydroxide (Milk Of Magnesia) 400 MG/5 ML ORAL.SUSP 30 Milliliters ORAL DAILY as needed for CONSTIPATION Comments: NOT GIVEN Bisacodyl (Bisacodyl) 10 MG SUPP.RECT 1 Suppository RECTAL as needed for CONSTIPATION Comments: NOT GIVEN Na Phos,M-B/Na Phos,Di-Ba (Fleet Enema) 19 GRAM-7 GRAM/118 ML ENEMA 1 Enema RECTAL DAILY as needed for CONSTIPATION Comments: NOT GIVEN Start taking the following new medications: Acetaminophen (Tylenol Extra Strength) 500 MG TABLET 1 Tablet ORAL EVERY SIX HOURS as needed for pain Qty = 60 No Refills Comments: Last Taken: 02/17/18 Time: 1000 Cephalexin (Cephalexin) 500 MG CAPSULE 500 Milligram ORAL TWICE DAILY Qty = 11 No Refills Comments: Last Taken: 02/19/18 Time: 0900 Enoxaparin Sodium (Lovenox) 40 MG/0.4 ML SYRINGE 0.4 Milliliters SC DAILY Qty = 30 No Refills Comments: Last Taken: 02/19/18 Time: 0900 Copies To: Avtar CAMPBELL,Malcolm Soliz MD,Raphael Cr
[2018-02-19 08:23] LABS: ABSOLUTE BASOPHIL COUNT 0 /CUMM (0.0-0.2); ABSOLUTE EOSINOPHIL COUNT 0.3 /CUMM (0.0-0.7); ABSOLUTE GRANULOCYTE CT 7.6 /CUMM (1.4-6.5); ABSOLUTE MONOCYTE COUNT 0.5 /CUMM (0.10-0.60); BASOPHIL % 0.5 % (0.0-2.0); EOSINOPHIL % 3.3 % (0-5); GRANULOCYTE % 80.2 % (42.2-75.2); HEMATOCRIT 30.2 % (37-47); MEAN CORPUSCULAR HGB 32.1 PG (27.0-31.0); MEAN CORPUSCULAR HGB CONC 34.2 G/DL (33.0-37.0); MEAN CORPUSCULAR VOLUME 93.9 FL (81.0-99.0); MEAN PLATELET VOLUME 7.6 FL (7.4-10.4); PLATELET COUNT 190 /CUMM (130-400); RBC DISTRIBUTION WIDTH 14.2 % (11.5-14.5); RED BLOOD CELL CT 3.22 /CUMM (4.20-5.40); WHITE BLOOD CELL COUNT 9.4 /CUMM (4.8-10.8)
[2018-02-19] MEDS ORDERED: CEPHALEXIN500 M3 PO (10:18)
--- NOTE | 2018-02-19 11:55 | PN- Att Addend ---
Attending Addendum Attending Brief Note Patient seen and examined, looking better today. She has dementia but was able to communicate some. She denies any complaints. She was sitting in the chair. Vital Signs Date Time Temp Pulse Resp B/P B/P Pulse O2 O2 Flow FiO2 Mean Ox Delivery Rate 02/19 0702 99.7 61 17 147/49 97 02/18 2119 99.2 61 17 160/54 94 Room Air 02/18 1526 Room Air Room Air 02/18 1447 98.2 56 18 138/60 97 Room Air on exam; awake, nad. cv; s1,s2, rrr resp; clear abd; soft, nt, bs+ ext; no edema Laboratory Tests 02/19 733 Hematology CBC w Diff NO MAN DIFF REQ WBC (4.8 - 10.8 /CUMM) 9.4 RBC (4.20 - 5.40 /CUMM) 3.22 L Hgb (12.0 - 16.0 G/DL) 10.3 L Hct (37 - 47 %) 30.2 L MCV (81.0 - 99.0 FL) 93.9 MCH (27.0 - 31.0 PG) 32.1 H MCHC (33.0 - 37.0 G/DL) 34.2 RDW (11.5 - 14.5 %) 14.2 Plt Count (130 - 400 /CUMM) 190 MPV (7.4 - 10.4 FL) 7.6 Gran % (42.2 - 75.2 %) 80.2 H Lymphocytes % (20.5 - 51.1 %) 10.8 L Monocytes % (1.7 - 9.3 %) 5.2 Eosinophils % (0 - 5 %) 3.3 Basophils % (0.0 - 2.0 %) 0.5 Absolute Granulocytes (1.4 - 6.5 /CUMM) 7.6 H Absolute Lymphocytes (1.2 - 3.4 /CUMM) 1.0 L Absolute Monocytes (0.10 - 0.60 /CUMM) 0.5 Absolute Eosinophils (0.0 - 0.7 /CUMM) 0.3 Absolute Basophils (0.0 - 0.2 /CUMM) 0 A/P: 82 y/o F with pmh sig for Alzheimer's dementia, hypothyroidism, anxiety, osteoporosis admitted with fall and right hip fracture s/p Right femur intramedullary rodding on 02/16/2018. Patient also had acute blood loss anemia and required RBC transfusion. This was likely secondary to postop. She also has a UTI and currently getting treated with antibiotics. She has underlying dementia but overall she is doing better. She needs to have a bowel movement. Bowel regimen is ordered. Otherwise her H&H is stable. Her pain is under control. She will be going back to her facility. She is otherwise medically stable for discharge. I also confirmed with surgical PA and she is also stable from their standpoint to get discharged. She will be discharged back to her facility after she has a bowel movement.
[2018-02-19] MEDS ORDERED: LOVENOX40 MG/0.1 SC (12:59)
[2018-02-19] MEDS ORDERED: TYLENOL EXTRA500 M2 PO ×2 (13:31→13:35)
[2018-02-19 13:53] VITALS: BP 147/49
[2018-02-19 15:00] VITALS: BP 130/56
[2018-02-19 16:50] VITALS: BP 130/56
== END 2018-02-19 18:10 | DRG 481 ==
LOC: ERH 22:10 → 2NB 02-16 00:16 → ERHI 02-16 00:16 → ENRESERV 02-16 02:12 → 2NB 02-16 02:42 → 2NA 02-16 02:42 → ENTRNSPT 02-16 17:57 → CMPTRNSPT 02-16 18:20 → 1NO 02-16 23:00 → 2NB 02-17 22:50 → ENPENDDIS 02-19 14:25 → 2NB 02-19 18:10
PROVIDERS: Internal Medicine Adolescent Medicine; Physician Assistant Medical; Physician Assistant Surgical; Student in an Organized Health Care Education/Training Program
PROC: 0QS606Z Reposition Right Upper Femur with Intramedullary Internal Fixation Device, Open Approach (ICD-10-PCS; principal; 2018-02-16)
PROC: 3E0T3BZ Introduction of Anesthetic Agent into Peripheral Nerves and Plexi, Percutaneous Approach (ICD-10-PCS; 2018-02-16)
PROC: 30233N1 Transfusion of Nonautologous Red Blood Cells into Peripheral Vein, Percutaneous Approach (ICD-10-PCS; 2018-02-17)
DX: S72.141A Displaced intertrochanteric fracture of right femur, initial encounter for closed fracture (principal); I47.1 Supraventricular tachycardia; N39.0 Urinary tract infection, site not specified; D62 Acute posthemorrhagic anemia; G30.9 Alzheimer's disease, unspecified; I44.7 Left bundle-branch block, unspecified; B96.4 Proteus (mirabilis) (morganii) as the cause of diseases classified elsewhere; F02.80 Dementia in other diseases classified elsewhere, unspecified severity, without behavioral disturbance, psychotic disturbance, mood disturbance, and anxiety; E89.0 Postprocedural hypothyroidism; F41.9 Anxiety disorder, unspecified; M81.0 Age-related osteoporosis without current pathological fracture; Z66 Do not resuscitate; W19.XXXA Unspecified fall, initial encounter; Y92.129 Unspecified place in nursing home as the place of occurrence of the external cause
CPT/HCPCS: 1NP; 2NBSP; 36592; 71045; 73502-RT; 74176; 76000; 81001; 82436; 86920; 87086; 93005; 93010; 93306; 96365; 97161-GP; 97530-GO; C1713; J0131; J0690; J1650; P9016